=== PATIENT | female | born 1985 | race Caucasian/White ===

== ENCOUNTER 2020-09-08 09:04 | Emergency (ER) | payer OTHER, SELFPAY ==
[2020-09-08 09:06] VITALS: BP 154/98; PULSE 134; RESP 22; TEMP 36.7; O2SAT 94; BMI 37.8
--- NOTE | 2020-09-08 09:19 | EKG12_ITS ---
Test Reason : FEVER Blood Pressure : / mmHG Vent. Rate : 129 BPM Atrial Rate : 129 BPM P-R Int : 134 ms QRS Dur : 134 ms QT Int : 330 ms P-R-T Axes : 058 -47 069 degrees QTc Int : 483 ms Sinus tachycardia Possible Left atrial enlargement Left axis deviation Left bundle branch block Abnormal ECG Confirmed by TONY FLOR, RASHEL ([id number]), editorial clerk JOCELYNN ENGLAND ([id number]) on 09/12/2020 2:23:57 PM Referred By: Confirmed By:RASHEL JIMENEZ MD
[2020-09-08 09:20] VITALS: BP 154/98; PULSE 134; RESP 22; TEMP 36.7; O2SAT 94
--- NOTE | 2020-09-08 09:20 | ED.DCSUM_ITS ---
History of Present Illness Chief Complaint: Fever Informant: Patient Narrative: 34-year-old female presents for the evaluation of fever vomiting and diarrhea. Patient tells me that she began to feel ill on . She developed a slight headache body aches and nausea. Over the weekend the symptoms continued and she experienced vomiting and diarrhea. She notes fever up to 102. She notes a cough with deep inspiration. She denies any rashes, nasal congestion, sore throat, earache. She states that her left leg felt achy this morning when she put her socks on. 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 She denies any leg swelling. She denies any shortness of breath at rest but when she gets up and moves she states she feels weak. She was concerned about dehydration and called her doctor and they referred her to emergency. She notes one of her children has had a productive cough but nobody else. Patient also notes that she can smell things but cannot taste things very well. Past Medical History - Allergies and Home Meds Allergies/Adverse Reactions: Allergies No Known Allergies Allergy (Verified 09/08/20 09:05) Primary Care Physician: Scar Mo DO [Primary Care Provider] - 3-5 Days if not improving Past Medical History: None Surgical History: - - x4, BTL Lives: With Family Smoking Status: Never smoker Alcohol: None Drugs: None Review of Systems General: Reports: Chills, Fever, Malaise, Sweats Eyes: Denies: Visual changes - bilaterally, Diplopia ENT: Denies: Rhinorrhea, Sore throat Cardiovascular: Denies: Chest pain, Palpitations Respiratory: Reports: Cough, Dyspnea on exertion Gastrointestinal: Reports: Nausea, Vomiting, Diarrhea. Denies: Abdominal pain, Melena, Hematochezia Genitourinary: Denies: Dysuria, Hematuria, Frequency Musculoskeletal: Reports: Myalgias, Arthralgias. Denies: Back pain, Extremity Pain Skin: Denies: Rash, Wounds Neurological: Reports: Headache. Denies: Weakness, Numbness Physical Exam Vital Signs/Narrative: Vital Signs Temp Pulse Resp BP Pulse Ox 09/08/20 09:06 98.1 F 134 H 22 H 154/98 H 94 Inital Vital Signs reviewed: Yes General: Well nourished, Well developed, Obese, No Acute Distress Head: Normocephalic, Atraumatic Eyes: Perrl, EOMI ENT: Moist mucous membranes, No rhinorrhea Neck: Supple, Nontender Cardiovascular: Regular rate, No murmurs, Tachycardia Respiratory: No distress, CTA bilaterally, Chest nontender Abdomen: Soft, Nontender, Nondistended, Normal bowel sounds Back: Nontender, Normal Inspection Extremities: Nontender, No edema Skin: Normal color, No rash Neurological: Alert, Oriented x3, Cranial nerves II-XII grossly intact, Normal Strength, Normal Sensation Psychological: Normal affect, Normal Mood Diagnostic/Tx/Re-eval Clinical Impression(s) from Imaging Studies Chest X-Ray 09/08/20 09:40 IMPRESSION: Opacification right cardiophrenic angle suggests infiltrate or atelectasis. Platelike atelectasis in the left midlung field Follow-up recommended to assure resolution Electronically Signed: Charli Correa MD at 10:06 EDT , Service support , Chest CTA 09/08/20 11:19 IMPRESSION: No demonstrated PE, or thoracic aortic aneurysm or dissection Diffuse airspace and groundglass opacifications, and in the periphery of both lung brothers with bibasilar atelectasis and small pleural effusions. Differential as described above, Covid pneumonia suspected Electronically Signed: Chrali Correa MD at 12:10 EDT , Service support , Laboratory Last Values WBC 4.4 K/mm3 (4.4-11.0) 09/08/20 09:37 RBC 5.26 M/mm3 (4.2-5.4) 09/08/20 09:37 Hgb 14.2 g/dL (12.0-15.0) 09/08/20 09:37 Hct 44.5 % (37-47) 09/08/20 09:37 MCV 84.6 fL (81-99) 09/08/20 09:37 MCH 27.0 pg (27.0-32.0) 09/08/20 09:37 MCHC 31.9 g/dL (32-36) L 09/08/20 09:37 RDW Std Deviation 40.5 fl (35.1-43.9) 09/08/20 09:37 RDW Coeff of Cathy 12.9 % (11.6-14.6) 09/08/20 09:37 Plt Count 134 K/mm3 (150-450) L 09/08/20 09:37 MPV 11.5 fl (6.2-12.0) 09/08/20 09:37 Immature Gran % (Auto) 0.500 % (0.0-0.9) 09/08/20 09:37 Neut % (Auto) 75.3 % (47-70) H 09/08/20 09:37 Lymph % (Auto) 20.4 % (19-41) 09/08/20 09:37 [place] % (Auto) 3.6 % (0-10) 09/08/20 09:37 Eos % (Auto) 0.0 % (0-5) 09/08/20 09:37 Baso % (Auto) 0.2 % (0-1) 09/08/20 09:37 Absolute Neuts (auto) 3.3 X10^3/uL (2.0-7.7) 09/08/20 09:37 Absolute Lymphs (auto) 0.90 X10^3/uL (0.83-4.51) 09/08/20 09:37 Nucleated RBC % 0 % (0-5) 09/08/20 09:37 PT 14.1 SECONDS (11.7-14.9) 09/08/20 09:37 INR 1.2 09/08/20 09:37 APTT 31.0 Seconds (24.1-36.2) 09/08/20 09:37 Sodium 137 mmol/L (136-145) 09/08/20 09:37 Potassium 3.5 mmol/L (3.5-5.1) 09/08/20 09:37 Chloride 102 mmol/L (98-107) 09/08/20 09:37 Carbon Dioxide 27.0 mmol/L (21.0-32.0) 09/08/20 09:37 Anion Gap 8 (5-15) 09/08/20 09:37 BUN 17 mg/dL (7-18) 09/08/20 09:37 Creatinine 0.87 mg/dL (0.55-1.02) 09/08/20 09:37 Estim Creat Clear Calc 72.06 ml/min 09/08/20 09:37 Est GFR (MDRD) Af Amer 96 mL/min (>60) 09/08/20 09:37 Est GFR (MDRD) Non-Af 79 mL/min (>60) 09/08/20 09:37 BUN/Creatinine Ratio 19.6 RATIO (10-20) 09/08/20 09:37 Glucose 104 mg/dL (74-106) 09/08/20 09:37 Lactic Acid 1.4 mmol/L (0.4-1.9) 09/08/20 09:37 Calcium 8.3 mg/dL (8.5-10.1) L 09/08/20 09:37 Total Bilirubin 0.40 mg/dL (0.20-1.00) 09/08/20 09:37 AST 31 U/L (15-37) 09/08/20 09:37 ALT 29 U/L (13-56) 09/08/20 09:37 Alkaline Phosphatase 60 U/L (45-117) 09/08/20 09:37 Troponin I < 0.015 ng/mL (<0.045) 09/08/20 09:37 Total Protein 7.6 g/dL (6.4-8.2) 09/08/20 09:37 Albumin 3.3 g/dL (3.2-5.0) 09/08/20 09:37 Globulin 4.3 g/dL (2.2-4.2) H 09/08/20 09:37 Albumin/Globulin Ratio 0.8 RATIO (0.9-2.4) L 09/08/20 09:37 - EKG Initial EKG Interpretation: Sinus Tachycardia - EKG demonstrates a sinus tachycardia at a rate of 129 with left bundle branch block. - Medical Decision Making It was established and patient received IV fluids and Zofran. My interpretation of the portable chest x-ray is atelectatic changes in the left lung field. Radiology questions atelectasis versus infiltrate on the right as well as left. CT of the chest demonstrates multiple focal areas of infiltrate throughout both lung brothers. Patient's white count is low normal. Lactic acid normal. No evidence of endorgan dysfunction and electrolytes are within normal limits.. Heart rate has improved with IV fluids. Clinically the patient has COVID-19 symptoms. I will write for Zofran and suggest Imodium as needed for the diarrhea. Also write for Decadron and albuterol MDI. I been assigned a Covid PCR test. Patient understands that she may worsen in the next several days and require hospitalization or oxygen supplementation. She was advised that she needs to contact her children's school and her 's work to find out their protocols for returning with a known household infection. Return if worsening or concerns After the patient was home I checked her Covid PCR and it is positive. I will attempt to call the patient. ED Disposition - Plan for ED Patient: Disposition: Home or Assisted Living Diagnosis: Viral syndrome, Vomiting and diarrhea, COVID-19 Instructions: Coronavirus Disease 2019 (COVID-19): Overview, ED G astroenteritis, Viral (Adult), ED Viral Syndrome (Adult) Prescriptions: Dexamethasone [Decadron] 6 mg PO DAILY 5 Days #5 tablet Transmission Status: Received by [id number] Albuterol Inhaler [Ventolin Hfa] 2 puff INHALATION Q4H PRN PRN #1 inhaler PRN Reason: Wheezing Transmission Status: Received by [facility] Ondansetron [Zofran Odt] 4 mg PO Q6H PRN PRN #20 tablet PRN Reason: Nausea Prescription Printed Referrals: Scar Mo DO [Primary Care Provider] - 3-5 Days if not improving Additional Instructions: Imodium as needed for diarrhea Tylenol or Motrin for fever and myalgias.
--- NOTE | 2020-09-08 09:40 | RAD_ITS ---
STUDY: X-RAY CHEST REASON FOR EXAM: Female, 34 years old. Fever and cough TECHNIQUE: 2 AP portable views COMPARISON: None. FINDINGS: EKG leads overlie the chest The lungs are expanded, there is interstitial opacification in the right cardiophrenic angle and platelike atelectasis in the left midlung field. There is no demonstrated pleural abnormality. Normal size heart. Normal mediastinum and manny. Normal visualized pulmonary arteries. Normal visualized aortic arch and descending thoracic aorta. Normal visualized thoracic spine. Normal visualized ribs, clavicles, and shoulders. There is no demonstrated abnormality of the visualized soft tissue structures of the upper abdomen. RAD/Chest 1 View (Portable) IMPRESSION: Opacification right cardiophrenic angle suggests infiltrate or atelectasis. Platelike atelectasis in the left midlung field Follow-up recommended to assure resolution Electronically Signed: Charli Correa MD at 10:06 EDT , Service support ,
[2020-09-08 09:46] VITALS: TEMP 36.8
[2020-09-08] MEDS: 0.9% Normal Saline 1,000 ML 999 ML IV ×2 (09:47→10:59)
[2020-09-08 09:50] LABS: Absolute Neutrophil Count 3.3 X10^3/uL (2.0-7.7); Basophil# 0.01 X10^3/uL; Basophil% 0.2 % (0-1); Hematocrit 44.5 % (37-47); Hemoglobin 14.2 g/dL (12.0-15.0); Lymphocyte % 20.4 % (19-41); Mean Corp Hgb Conc 31.9 g/dL (32-36); Mean Corpuscular Volume 84.6 fL (81-99); Mean Platelet Vol. 11.5 fl (6.2-12.0); Monocyte# 0.16 X10^3/uL; Monocyte% 3.6 % (0-10); NRBC Flagged by Analyzer 0 % (0-5); Neutrophil # 3.33 X10^3/uL (2.7-7.7); Neutrophil % 75.3 % (47-70); Platelet Count 134 K/mm3 (150-450); RBC Distribution Width CV 12.9 % (11.6-14.6); RBC Distribution Width SD 40.5 fl (35.1-43.9); Red Blood Count 5.26 M/mm3 (4.2-5.4); White Blood Count 4.4 K/mm3 (4.4-11.0)
[2020-09-08 09:59] LABS: International Normalized Ratio 1.2; Prothrombin Time (Protime)PT. 14.1 SECONDS (11.7-14.9)
[2020-09-08 10:09] LABS: Lactic Acid 1.4 mmol/L (0.4-1.9)
[2020-09-08 10:33] LABS: ALB/GLOB Ratio 0.8 RATIO (0.9-2.4); AST(SGOT) 31 U/L (15-37); Alanine Aminotransfer ALT/SGPT 29 U/L (13-56); Albumin, Serum 3.3 g/dL (3.2-5.0); Alkaline Phosphatase 60 U/L (45-117); Anion Gap 8 (5-15); BUN 17 mg/dL (7-18); BUN/Creat Ratio 19.6 RATIO (10-20); Calcium,Total 8.3 mg/dL (8.5-10.1); Chloride 102 mmol/L (98-107); Creatinine, Serum 0.87 mg/dL (0.55-1.02); EST Glomerular Filtration Rate 79 mL/min (>60); Est Glom Filt Rate - Afr Amer 96 mL/min (>60); Estimated Creatinine Clearance 72.06 ml/min; Globulin 4.3 g/dL (2.2-4.2); Glucose 104 mg/dL (74-106); Potassium 3.5 mmol/L (3.5-5.1); Protein, Total 7.6 g/dL (6.4-8.2); Sodium Level 137 mmol/L (136-145)
[2020-09-08 11:18] LABS: D-Dimer Quantitative (DVT/PE) 1.01 FEU/ug/m (0.27-0.49)
--- NOTE | 2020-09-08 11:19 | VDLE_ITS ---
Reason For Study: Elevated D-dimer Procedure LEFT This is a venous duplex using B-mode, color GSV is normal. flow and spectral Doppler. CFV is partially compressible with bright Exam performed portable in ED. intraluminal echoes consistent with Chronic A preliminary report was called and/or faxed DVT. Normal venous flow noted. to Liliana. FV is compressible, spontaneous, phasic, competent and demonstrates normal augmentation. POP V is compressible, spontaneous, phasic, competent and demonstrates normal augmentation. T/P Trunk is compressible. PTV is compressible. LT PerV is compressible. VL/Venous Duplex US, Unilateral Interpretation Summary Chronic venous changes are noted in the left common femoral vein, which is part ially compressible and demonstrates bright intraluminal echogenicity. The remainder of the left lo wer extremity deep venous system is patent and compressible. Valvular competence appears intact wi thin the proximal deep venous system on the left . The left great saphenous vein appears patent a nd compressible segmentally. Ordering Physician: Segun Ford Referring Physician: Scar Mo Performed By: Yumiko Browne RVT
--- NOTE | 2020-09-08 11:19 | CT_ITS ---
STUDY: CTA CHEST REASON FOR EXAM: Female, 34 years old. Acute shortness of breath, elevated d-dimer RADIATION DOSAGE (If Supplied By Facility): CTDIvol = ( 10.50 ) mGy, DLP = ( 361.00 ) mGycm TECHNIQUE: The examination was performed with the intravenous administration of IV 100mL Isovue-370. Post-processing of the angiographic images was performed, with multiplanar reformation and 3D reconstruction. Individualized dose optimization techniques were used for this CT. COMPARISON: Chest x-ray from earlier today FINDINGS: Normal enhancement of the main pulmonary artery and right and left pulmonary arteries. Normal enhancement of the bilateral peripheral pulmonary arteries. There is no demonstrated pulmonary embolism. Normal thoracic aorta and visualized great vessels. There is no demonstrated aortic dissection. Normal heart and pericardium. Normal mediastinum. Normal hilar regions. There is peribronchial thickening. The lungs are well expanded. Diffuse patchy groundglass and airspace opacifications throughout both lung brothers with bibasilar atelectasis and small pleural effusions. This pattern of opacification is suggestive of Covid pneumonia, but could also be seen with multifocal pneumonitis or drug interaction/toxicity. Normal pleura. Normal chest wall structures. Normal osseous structures. Normal visualized upper abdomen. CT/CTA Chest W/WO Contrast IMPRESSION: No demonstrated PE, or thoracic aortic aneurysm or dissection Diffuse airspace and groundglass opacifications, and in the periphery of both lung brothers with bibasilar atelectasis and small pleural effusions. Differential as described above, Covid pneumonia suspected Electronically Signed: Charli Correa MD at 12:10 EDT , Service support ,
[2020-09-08 11:21] VITALS: BP 118/75; PULSE 71; RESP 15; TEMP 36.9; O2SAT 98
[2020-09-08 11:34] LABS: Color, Urine Yellow (Yellow); Glucose, Dipstick Normal (Normal); Leukocyte Esterase-Dipstick 500 /ul (Negative); Nitrite-Dipstick Negative (Negative); Occult Blood-Urine 10 /ul (Negative); Protein-Dipstick 30 mg/dl (Negative); Urine Bilirubin Dipstick Negative (Negative); Urine Clarity Sl. Cloudy (Clear); Urine Urobilinogen Normal (Normal)
[2020-09-08 11:42] LABS: Ketone-Dipstick 150 mg/dl (Negative)
[2020-09-08 11:43] LABS: Bacteria 2+ /hpf (None Seen); Mucous, Urine 1+ /hpf (<or=2+); Red Blood Cells-Urine 0-5 SEEN /hpf (0-5); Squamous Epithelial Cells - UA 0-5 SEEN /hpf (5-10); White Blood Cells 5-10 SEEN /hpf (0-5)
[2020-09-08 12:58] VITALS: BP 139/74; PULSE 74; RESP 15; TEMP 36.8; O2SAT 98
== END 2020-09-08 13:00 | disposition home or self-care (01) ==
PROVIDERS: Emergency Provider Emergency Medicine; PCP Family Medicine
DX: U07.1 COVID-19 (principal); B34.9 Viral infection, unspecified; R11.2 Nausea with vomiting, unspecified; R19.7 Diarrhea, unspecified; I44.7 Left bundle-branch block, unspecified; E66.9 Obesity, unspecified; Z86.718 Personal history of other venous thrombosis and embolism
CPT/HCPCS: 71045; 71275; 80053; 81001; 83605; 84484; 85025; 85379; 85610; 85730; 87040; 87086; 87088; 87426; 87635; 87804; 93005; 93971; 96360; 96361; 99284; J7030; Q9967; U0002

== ENCOUNTER 2020-09-14 23:26 | Inpatient (IN) | payer OTHER, SELFPAY ==
[2020-09-14 23:28] VITALS: BP 106/64; PULSE 116; RESP 28; TEMP 36.6; O2SAT 92; BMI 36.5
--- NOTE | 2020-09-14 23:50 | EKG12_ITS ---
Test Reason : SOB Blood Pressure : / mmHG Vent. Rate : 113 BPM Atrial Rate : 113 BPM P-R Int : 144 ms QRS Dur : 138 ms QT Int : 368 ms P-R-T Axes : 050 -41 073 degrees QTc Int : 504 ms Sinus tachycardia Left axis deviation Left bundle branch block Abnormal ECG Confirmed by CLAUDIA FLOR, CHINO ([id number]), quality audit representative JOCELYNN ENGLAND ([id number]) on 09/15/2020 2:24:57 PM Referred By: ENID Confirmed By:CHINO TAYLOR MD
--- NOTE | 2020-09-14 23:52 | ED.VIS.GEN ---
History of Present Illness Chief Complaint: Shortness of Breath Informant: Patient, Family, Database Security Administrator Narrative: 34-year-old female was diagnosed with Covid 1 week ago. She was placed on steroids. She is continued to have diarrhea and not eat very well. She notes dyspnea with exertion. EMS was called tonight. They noted her to be hypoxic at about 85% on room air. Nursing here notes that she is 85% on room air also and significantly labored breathing with exertion. On 6 L she is satting approximately 92%. Past Medical History - Allergies and Home Meds Allergies/Adverse Reactions: Allergies No Known Allergies Allergy (Verified 09/14/20 23:36) Primary Care Physician: Scar Mo DO [Primary Care Provider] - Past Medical History: - - COVID-19 Surgical History: noncontributory, - - x4, BTL Lives: With Family Smoking Status: Never smoker Alcohol: None Drugs: None Review of Systems General: Reports: Chills, Fever, Malaise. Denies: Sweats Eyes: Denies: Visual changes - bilaterally, Diplopia ENT: Denies: Rhinorrhea, Sore throat Cardiovascular: Denies: Chest pain, Palpitations Respiratory: Reports: Dyspnea, Cough, Dyspnea on exertion Gastrointestinal: Reports: Nausea, Diarrhea. Denies: Abdominal pain, Vomiting, Melena, Hematochezia Genitourinary: Denies: Dysuria, Hematuria, Frequency Musculoskeletal: Reports: Myalgias, Arthralgias. Denies: Back pain, Extremity Pain Skin: Denies: Rash, Wounds Neurological: Reports: Headache. Denies: Weakness, Numbness Physical Exam Vital Signs/Narrative: Vital Signs Temp Pulse Resp BP Pulse Ox 09/14/20 23:28 97.9 F 116 H 28 H 106/64 92 Inital Vital Signs reviewed: Yes General: Well nourished, Well developed, No Acute Distress Head: Normocephalic, Atraumatic Eyes: Perrl, EOMI ENT: Moist mucous membranes, No rhinorrhea Neck: Supple, Nontender Cardiovascular: Regular rate, No murmurs, Tachycardia Respiratory: No distress, CTA bilaterally, Chest nontender Abdomen: Soft, Nontender, Nondistended, Normal bowel sounds Back: Nontender, Normal Inspection Extremities: Nontender, No edema Skin: Normal color, No rash Neurological: Alert, Oriented x3, Cranial nerves II-XII grossly intact, Normal Strength, Normal Sensation Psychological: Normal affect, Normal Mood Diagnostic/Tx/Re-eval Clinical Impression(s) from Imaging Studies Chest CTA 09/15/20 23:51 IMPRESSION: No demonstrated pulmonary embolism or arterial dissection. Interval increase in diffusely scattered groundglass airspace opacities concerning for underlying infectious inflammatory process and Covid pneumonia. Electronically Signed: Tomer Triplett MD at 1:21 EDT Tel , Service support , Laboratory Last Values WBC 9.0 K/mm3 (4.4-11.0) 09/14/20 23:47 RBC 5.48 M/mm3 (4.2-5.4) H 09/14/20 23:47 Hgb 14.7 g/dL (12.0-15.0) 09/14/20 23:47 Hct 46.4 % (37-47) 09/14/20 23:47 MCV 84.7 fL (81-99) 09/14/20 23:47 MCH 26.8 pg (27.0-32.0) L 09/14/20 23:47 MCHC 31.7 g/dL (32-36) L 09/14/20 23:47 RDW Std Deviation 39.6 fl (35.1-43.9) 09/14/20 23:47 RDW Coeff of Cathy 12.7 % (11.6-14.6) 09/14/20 23:47 Plt Count 170 K/mm3 (150-450) 09/14/20 23:47 MPV 10.7 fl (6.2-12.0) 09/14/20 23:47 Immature Gran % (Auto) 1.600 % (0.0-0.9) H 09/14/20 23:47 Neut % (Auto) 80.8 % (47-70) H 09/14/20 23:47 Lymph % (Auto) 10.3 % (19-41) L 09/14/20 23:47 Jack % (Auto) 6.3 % (0-10) 09/14/20 23:47 Eos % (Auto) 0.8 % (0-5) 09/14/20 23:47 Baso % (Auto) 0.2 % (0-1) 09/14/20 23:47 Absolute Neuts (auto) 7.3 X10^3/uL (2.0-7.7) 09/14/20 23:47 Absolute Lymphs (auto) 0.92 X10^3/uL (0.83-4.51) 09/14/20 23:47 Nucleated RBC % 0 % (0-5) 09/14/20 23:47 Fibrinogen 421 mg/dl (203-444) 09/14/20 23:47 D-Dimer Quant (PE/DVT) > 20.00 FEU/ug/m (0.27-0.49) H* 09/14/20 23:47 Sodium 139 mmol/L (136-145) 09/14/20 23:47 Potassium 3.2 mmol/L (3.5-5.1) L 09/14/20 23:47 Chloride 104 mmol/L (98-107) 09/14/20 23:47 Carbon Dioxide 30.0 mmol/L (21.0-32.0) 09/14/20 23:47 Anion Gap 5 (5-15) 09/14/20 23:47 BUN 25 mg/dL (7-18) H 09/14/20 23:47 Creatinine 0.86 mg/dL (0.55-1.02) 09/14/20 23:47 Estim Creat Clear Calc 72.90 ml/min 09/14/20 23:47 Est GFR (MDRD) Af Amer 97 mL/min (>60) 09/14/20 23:47 Est GFR (MDRD) Non-Af 80 mL/min (>60) 09/14/20 23:47 BUN/Creatinine Ratio 29.1 RATIO (10-20) H 09/14/20 23:47 Glucose 124 mg/dL (74-106) H 09/14/20 23:47 Lactic Acid 1.7 mmol/L (0.4-1.9) 09/14/20 23:47 Calcium 8.6 mg/dL (8.5-10.1) 09/14/20 23:47 Total Bilirubin 0.60 mg/dL (0.20-1.00) 09/14/20 23:47 AST 40 U/L (15-37) H 09/14/20 23:47 ALT 87 U/L (13-56) H 09/14/20 23:47 Alkaline Phosphatase 56 U/L (45-117) 09/14/20 23:47 Lactate Dehydrogenase 335 U/L (84-246) H 09/14/20 23:47 Total Creatine Kinase 36 U/L (26-192) 09/14/20 23:47 Troponin I < 0.015 ng/mL (<0.045) 09/14/20 23:47 C-React Prot Ext Range 19.70 mg/L (0.0-3.0) H 09/14/20 23:47 Total Protein 7.2 g/dL (6.4-8.2) 09/14/20 23:47 Albumin 2.8 g/dL (3.2-5.0) L 09/14/20 23:47 Globulin 4.4 g/dL (2.2-4.2) H 09/14/20 23:47 Albumin/Globulin Ratio 0.6 RATIO (0.9-2.4) L 09/14/20 23:47 Procalcitonin 0.06 ng/mL (0.00-0.09) 09/14/20 23:47 Serum , Qual NEGATIVE Negative 09/14/20 23:47 - EKG Initial EKG Interpretation: Sinus Tachycardia - EKG demonstrates a sinus tachycardia at a rate of 113. No concerning features of ACS. Noted left bundle branch block. - Medical Decision Making CTA was obtained given her degree of tachycardia and hypoxemia and hypercoagulable state. No pulmonary embolism was noted. Basic labs were obtained. Plan will be admission to the hospital. ED Disposition - Plan for ED Patient: Disposition: Acute Care Hospital [facility] Diagnosis: COVID-19, Hypoxia Referrals: Scar Mo DO [Primary Care Provider] -
[2020-09-15] VITALS (19 sets, daily range): BP systolic 107–121; BP diastolic 56–84; PULSE 87–118; RESP 18–28; TEMP 36.6–37.1; O2SAT 88–98; BMI 34.9
[2020-09-15] LABS: Absolute Lymphocyte Count 0.92 X10^3/uL (0.83-4.51); Absolute Neutrophil Count 7.3 X10^3/uL (2.0-7.7); Basophil# 0.02 X10^3/uL; Basophil% 0.2 % (0-1); Eosinophil# 0.07 X10^3/uL; Eosinophils% 0.8 % (0-5); Hematocrit 46.4 % (37-47); Hemoglobin 14.7 g/dL (12.0-15.0); Lymphocyte # 0.92 X10^3/ul (4.0); Lymphocyte % 10.3 % (19-41); Mean Corp Hgb Conc 31.7 g/dL (32-36); Mean Corpuscular Hgb 26.8 pg (27.0-32.0); Mean Corpuscular Volume 84.7 fL (81-99); Mean Platelet Vol. 10.7 fl (6.2-12.0); Monocyte# 0.56 X10^3/uL; Monocyte% 6.3 % (0-10); NRBC Flagged by Analyzer 0 % (0-5); Neutrophil # 7.25 X10^3/uL (2.7-7.7); Neutrophil % 80.8 % (47-70); Platelet Count 170 K/mm3 (150-450); RBC Distribution Width CV 12.7 % (11.6-14.6); RBC Distribution Width SD 39.6 fl (35.1-43.9); Red Blood Count 5.48 M/mm3 (4.2-5.4)
[2020-09-15 00:08] LABS: Internal QC Validated? YES +Cl - CLEAR BKGD; Pregnancy, Serum, hCG Quali. NEGATIVE Negative
[2020-09-15 00:17] LABS: ALB/GLOB Ratio 0.6 RATIO (0.9-2.4); AST(SGOT) 40 U/L (15-37); Alanine Aminotransfer ALT/SGPT 87 U/L (13-56); Albumin, Serum 2.8 g/dL (3.2-5.0); Alkaline Phosphatase 56 U/L (45-117); Anion Gap 5 (5-15); BUN 25 mg/dL (7-18); BUN/Creat Ratio 29.1 RATIO (10-20); CPK Total, Creatine Kinase 36 U/L (26-192); Calcium,Total 8.6 mg/dL (8.5-10.1); Chloride 104 mmol/L (98-107); Creatinine, Serum 0.86 mg/dL (0.55-1.02); EST Glomerular Filtration Rate 80 mL/min (>60); Est Glom Filt Rate - Afr Amer 97 mL/min (>60); Globulin 4.4 g/dL (2.2-4.2); Glucose 124 mg/dL (74-106); LDH 335 U/L (84-246); Potassium 3.2 mmol/L (3.5-5.1); Protein, Total 7.2 g/dL (6.4-8.2); Sodium Level 139 mmol/L (136-145)
[2020-09-15] MEDS: 0.9% Normal Saline 1,000 ML 999 ML IV (00:21)
[2020-09-15 00:24] LABS: D-Dimer Quantitative (DVT/PE) > 20.00 FEU/ug/m (0.27-0.49)
[2020-09-15 00:27] LABS: Lactic Acid 1.7 mmol/L (0.4-1.9)
[2020-09-15 00:44] LABS: Fibrinogen 421 mg/dl (203-444)
[2020-09-15 01:05] LABS: Procalcitonin 0.06 ng/mL (0.00-0.09)
--- NOTE | 2020-09-15 02:04 | PCM.HP.STD ---
History of Present Illness Date of Admission: 09/15/20 Chief Complaint: Shortness of breath The patient is a 34 year old F with PMH as below who presents back to the hospital with shortness of breath. She had since been seen about 5 or 6 days ago and was diagnosed with Covid and symptom onset was 5 to 6 days prior to that initial evaluation. At the time she was not hypoxic and she was discharged on Decadron. She has had increasing dyspnea with exertion and the ambulance was called and she was found to be hypoxic to about 85% on room air. She was brought in on ambulance and had a CTA of her chest done because a D-dimer was greater than 20 and was negative for PE. She was maintaining her oxygen sats on 6 L at 92%. No leukocytosis and her creatinine is stable in the ER. Past Medical History Allergies No Known Allergies Allergy (Verified 09/14/20 23:36) Home Medications: Ambulatory Orders Medication Instructions Recorded Albuterol Inhaler [Ventolin Hfa] 2 puff INHALATION Q4H PRN PRN #1 09/08/20 inhaler Surgical History: - - x4, BTL Lives: With Family Smoking Status: Never smoker Alcohol: None Drugs: None - *Family History Maternal History Items: No pertinent history Paternal History Items: Stroke Review of Systems Constitutional: Reports: Chills, Fever. Denies: Weight Change HEENT: Denies: Head Aches, Sinus Congestion, Sinus Drainage Cardiovascular: Denies: Chest Pain, Palpitations Respiratory: Reports: Cough, Shortness of Breath, Shortness of breath upon exertion. Denies: Shortness of breath at rest, Sputum production Gastrointestinal: Reports: Diarrhea, Nausea. Denies: Abdominal Pain, Vomiting Genitourinary: Denies: Dysuria Musculoskeletal: Denies: Joint Pain, Joint Tenderness Skin: Denies: Rash, Wounds Neurological: Denies: Numbness, Tingling, Focal weakness Psychiatric: Denies: Anxiety, Depression Hematologic/ Lymphatic: Denies: Easy Bruising, Easy Bleeding VTE Information - Inpt Only VTE Present on Admission: No Patient Problems: Active and Suspected Problems COVID-19 (Acute) Hypoxia (Acute) - Physical Exam Vitals/I&O's: Vital Signs Temp Pulse Resp BP Pulse Ox 98.0 F 109 H 21 H 121/84 H 97 09/15/20 01:51 09/15/20 01:51 09/15/20 01:51 09/15/20 01:51 09/15/20 01:51 Oxygen Flow Rate (L/min) 3 Oxygen Delivery Method Nasal Cannula Weight: 199 lb 8.293 oz Body Mass Index (BMI) 36.5 General: Alert, Oriented x3, Cooperative, No apparent distress HEENT: Atraumatic, PERRLA, EOMI, Normocephalic Oral: Moist Mucosa Neck: Supple, No JVD Lungs: Clear to auscultation, Normal air movement, No rhonchi, No wheeze, No rales Cardiovascular: Regular Rhythm, Normal S1, Normal S2, No murmurs, Tachycardic Abdomen: Soft, Non Tender, Non-Distended, No Hepato-splenomegaly Extremities: No edema, Capillary Refill Less than 3 Seconds Skin: No rashes, No breakdown Neurological: Neuro grossly intact, Sensory exam intact to light touch and pain Psych/Mental Status: Normal Affect, Appropriate Laboratory Results 09/14/20 23:47: WBC 9.0, RBC 5.48 H, Hgb 14.7, Hct 46.4, MCV 84.7, MCH 26.8 L, MCHC 31.7 L, RDW Std Deviation 39.6, RDW Coeff of Cathy 12.7, Plt Count 170, MPV 10.7, Immature Gran % (Auto) 1.600 H, Neut % (Auto) 80.8 H, Lymph % (Auto) 10.3 L, [place] % (Auto) 6.3, Eos % (Auto) 0.8, Baso % (Auto) 0.2, Absolute Neuts (auto) 7.3, Absolute Lymphs (auto) 0.92, Nucleated RBC % 0 09/14/20 23:47: Fibrinogen 421, D-Dimer Quant (PE/DVT) > 20.00 H* 09/14/20 23:47: Sodium 139, Potassium 3.2 L, Chloride 104, Carbon Dioxide 30.0, Anion Gap 5, BUN 25 H, Creatinine 0.86, Estim Creat Clear Calc 72.90, Est GFR (MDRD) Af Amer 97, Est GFR (MDRD) Non-Af 80, BUN/Creatinine Ratio 29.1 H, Glucose 124 H, Calcium 8.6, Total Bilirubin 0.60, AST 40 H, ALT 87 H, Alkaline Phosphatase 56, Lactate Dehydrogenase 335 H, Total Creatine Kinase 36, Troponin I < 0.015, C-React Prot Ext Range 19.70 H, Total Protein 7.2, Albumin 2.8 L, Globulin 4.4 H, Albumin/Globulin Ratio 0.6 L 09/14/20 23:47: Lactic Acid 1.7 09/14/20 23:47: Procalcitonin 0.06 09/14/20 23:47: Serum , Qual NEGATIVE Current Medications Acetaminophen (Acetaminophen 325 Mg Tablet) 650 mg PO Q6H PRN PRN PRN Reason: Pain Score 1-10/Temp > 100.7 F Dexamethasone (Dexamethasone 4 Mg Tablet) 6 mg PO DAILY@0800 HERNANDEZ Enoxaparin Sodium (Enoxaparin 30 Mg/0.3 Ml Syringe) 30 mg SC BID HERNANDEZ Guaifenesin (Guaifenesin 10 Ml Udc (200mg/10ml)) 20 ml PO Q4H PRN PRN PRN Reason: COUGH Sodium Chloride () 250 mls @ 15 mls/hr IV .[id number] PRN PRN Reason: Saline Flush Sodium Chloride () 250 mls @ 15 mls/hr IV .[id number] PRN PRN Reason: Additional IVPB Infusion Melatonin (Melatonin 3 Mg Tablet) 3 mg PO QHS PRN PRN PRN Reason: INSOMNIA Ondansetron HCl (Ondansetron 4 Mg/2 Ml Vial) 4 mg IV Q8H PRN PRN PRN Reason: NAUSEA/VOMITING Sodium Chloride (0.9% Saline Lock 10 Ml Syringe) 10 - 40 ml IV UD PRN PRN Reason: SALINE FLUSH Assessment/Plan All Active Problems COVID-19 (Acute) Hypoxia (Acute) 1. Acute hypoxic respiratory failure secondary to COVID-19 pneumonia/nausea/diarrhea -She is over 10 days with symptoms therefore will not receive remdesivir -Continue with Decadron for another 5 days to complete steroid course -We will place her on twice daily Lovenox -Continue with oxygen therapy as well as incentive spirometry -GI issues are related to her Covid diagnosis, will continue to monitor DVT: Lovenox Inpatient E&M: [id number] Init Hosp L2
[2020-09-15] MEDS: Potassium Chloride Oral Tablet 20 MEQ 60 MEQ PO (02:30)
[2020-09-15 05:05] LABS: Absolute Lymphocyte Count 0.96 X10^3/uL (0.83-4.51); Absolute Neutrophil Count 6.8 X10^3/uL (2.0-7.7); Basophil# 0.01 X10^3/uL; Basophil% 0.1 % (0-1); Eosinophil# 0.09 X10^3/uL; Eosinophils% 1.1 % (0-5); Hemoglobin 14.2 g/dL (12.0-15.0); Lymphocyte # 0.96 X10^3/ul (4.0); Lymphocyte % 11.3 % (19-41); Mean Corp Hgb Conc 30.9 g/dL (32-36); Mean Corpuscular Hgb 26.5 pg (27.0-32.0); Mean Platelet Vol. 10.5 fl (6.2-12.0); Monocyte# 0.52 X10^3/uL; Monocyte% 6.1 % (0-10); NRBC Flagged by Analyzer 0 % (0-5); Neutrophil # 6.78 X10^3/uL (2.7-7.7); Neutrophil % 79.9 % (47-70); Platelet Count 192 K/mm3 (150-450); RBC Distribution Width CV 13.1 % (11.6-14.6); RBC Distribution Width SD 40.7 fl (35.1-43.9); Red Blood Count 5.35 M/mm3 (4.2-5.4); White Blood Count 8.5 K/mm3 (4.4-11.0)
[2020-09-15 05:19] LABS: Anion Gap 4 (5-15); BUN 19 mg/dL (7-18); Calcium,Total 8.3 mg/dL (8.5-10.1); Chloride 106 mmol/L (98-107); Creatinine, Serum 0.82 mg/dL (0.55-1.02); EST Glomerular Filtration Rate 84 mL/min (>60); Est Glom Filt Rate - Afr Amer 102 mL/min (>60); Estimated Creatinine Clearance 76.46 ml/min; Glucose 108 mg/dL (74-106); Potassium 3.5 mmol/L (3.5-5.1); Sodium Level 140 mmol/L (136-145)
[2020-09-15] MEDS: dexAMETHasone 4 MG Tablet 6 MG PO (09:09)
[2020-09-15] MEDS: Enoxaparin 30 MG/0.3 ML Syringe SC ×2 (09:10→22:27)
--- NOTE | 2020-09-15 14:16 | TELEMED_ITS ---
[facility] has confirmed receipt of a request for visit. This document confirms receipt of the order initiating the consult. To find the results of the consultation, please view the patient's reports for the scanned Telemed Consult.
--- NOTE | 2020-09-15 14:23 | PCM.PN.BLA ---
Progress Note Patient was seen and examined. She is currently on 6 L of oxygen. She complains of feeling tired. Denies any fever or chills. Will continue on Decadron, oxygen. Continue to encourage incentive spirometer
--- NOTE | 2020-09-15 14:54 | CASEMGMT ---
CARA MONTERO attempted x2 to call patient in room to complete initial assessment. No answer, case management will attempt to call patient at later time to complete assessment.
[2020-09-15 15:12] LABS: BNP,B-Type NATRIURETIC PEPTIDE 12.5 pg/mL (0-100)
--- NOTE | 2020-09-15 15:40 | PCM.CON.CC ---
Problem List (1) Respiratory failure with hypoxia Status: Acute Qualifiers: Chronicity: acute Qualified Code(s): J96.01 - Acute respiratory failure with hypoxia (2) COVID-19 Status: Acute (3) Hypoxia Status: Acute Reason for Consult Date of Consultation: 09/15/20 Reason for Consultation: Acute hypoxic respiratory failure History of Present Illness: The patient is a 34 year old F, with no reported past medical history, who presented to [facility] on 09/15/2020 secondary to progressive shortness of breath. Patient had been seen 5 to 6 days prior and was diagnosed with Covid 19. Patient was not hypoxic at that time, so was discharged on Decadron therapy. Patient persisted in shortness of breath and had become hypoxic to 85% by EMS. Patient was transferred to the ER for further evaluation. On presentation to the ER, patient required supplemental oxygen to maintain saturations. Patient was also tachycardic at 116 bpm and tachypneic at 28 breaths/min. A CTA of the chest was obtained secondary to an elevated D-dimer showing significant increase in diffuse scattered groundglass opacities. Laboratory data showed a white blood cell count of 9, hemoglobin of 14.7 and bicarbonate of 30. Lactic acid was slightly elevated at 1.7, along with LDH of 335. CRP was elevated at 19.7, but procalcitonin was within normal limits. EKG showed only sinus tachycardia. Patient was admitted to the Covid cohort unit for further evaluation. Through the day, patient's oxygen status has continued to deteriorate. Patient initially was requiring 3 to 4 L to maintain saturations, but is currently requiring 10 L/min, so a pulmonary/critical care consult was obtained. Patient has had significant difficulty with incentive spirometer through the day achieving only 250 cc. Patient does report that she is starting to become tired of breathing. Patient does not report any history of obstructive lung disease previously. Patient denies any smoking. Patient does report that she has had albuterol in the past with subjective improvement. Patient also states that when she was with her 4 children that her breathing was improved. Patient has never been seen by hunting sales leader or had a formal pulmonary function test. Review of systems otherwise negative from a constitutional, HEENT, respiratory, cardiovascular, GI, genitourinary, musculoskeletal, skin, neurologic, psychiatric and hematologic system unless stated above. Past Medical History Allergies No Known Allergies Allergy (Verified 09/14/20 23:36) Home Medications: Ambulatory Orders Medication Instructions Recorded Albuterol Inhaler [Ventolin Hfa] 2 puff INHALATION Q4H PRN PRN #1 09/08/20 inhaler Surgical History: - - x4, BTL Lives: With Family Smoking Status: Never smoker Alcohol: None Drugs: None - *Family History Maternal History Items: No pertinent history Paternal History Items: Stroke Review of Systems Comment: See HPI Patient Problems: Active and Suspected Problems COVID-19 (Acute) Hypoxia (Acute) Objective: All imaging was personally reviewed from this encounter and her previous ER encounter. Patient has had significant worsening in groundglass opacities bilaterally. Patient has never had an echocardiogram or pulmonary function test that is available for review. - Physical Exam Vitals/I&O's: Vital Signs Temp Pulse Resp BP Pulse Ox 36.8 C 118 H 22 H 113/56 L 88 09/15/20 14:37 09/15/20 14:37 09/15/20 14:37 09/15/20 14:37 09/15/20 14:37 Oxygen Flow Rate (L/min) 6 Oxygen Delivery Method Nasal Cannula Weight: 86.636 kg Body Mass Index (BMI) 34.9 Intake and Output for Last 24 Hours 09/13/20 09/14/20 09/15/20 23:59 23:59 23:59 Intake Total 1060 / 1060 Output Total 650 / 650 Balance 410 / 410 General: Alert, Oriented x3, Cooperative, - - Obese. Moderate conversational dyspnea HEENT: Atraumatic, PERRLA, EOMI, Normocephalic, - - Glasses in place Oral: Moist Mucosa, No Gingival or Mucosal Lesions/ Ulcerations, - - Crowded posterior pharynx Neck: Supple, No JVD, No Nodes, Trachea Midline Lungs: No rhonchi, No wheeze, No rales, Diminished, - - Poor effort. Cardiovascular: Normal S1, Normal S2, No murmurs, No rub noted, No Gallop, Tachycardic Abdomen: Bowel Sounds Present, Soft, Non Tender, Non-Distended, Obese Extremities: No clubbing, No cyanosis, No edema, Capillary Refill Less than 3 Seconds Skin: No rashes, No breakdown Musculoskeletal: No Tenderness to Palpation of Joints or Extremities Lymphatic: No Cervical, Supraclavicular, or Inguinal Adenopathy Neurological: Cranial nerves II-XII grossly intact, Neuro grossly intact, Motor Exam 5/5 strength throughout Psych/Mental Status: Anxious, Restless Laboratory Results 09/14/20 23:47: WBC 9.0, RBC 5.48 H, Hgb 14.7, Hct 46.4, MCV 84.7, MCH 26.8 L, MCHC 31.7 L, RDW Std Deviation 39.6, RDW Coeff of Cathy 12.7, Plt Count 170, MPV 10.7, Immature Gran % (Auto) 1.600 H, Neut % (Auto) 80.8 H, Lymph % (Auto) 10.3 L, [place] % (Auto) 6.3, Eos % (Auto) 0.8, Baso % (Auto) 0.2, Absolute Neuts (auto) 7.3, Absolute Lymphs (auto) 0.92, Nucleated RBC % 0 09/14/20 23:47: Fibrinogen 421, D-Dimer Quant (PE/DVT) > 20.00 H* 09/14/20 23:47: Sodium 139, Potassium 3.2 L, Chloride 104, Carbon Dioxide 30.0, Anion Gap 5, BUN 25 H, Creatinine 0.86, Estim Creat Clear Calc 72.90, Est GFR (MDRD) Af Amer 97, Est GFR (MDRD) Non-Af 80, BUN/Creatinine Ratio 29.1 H, Glucose 124 H, Calcium 8.6, Total Bilirubin 0.60, AST 40 H, ALT 87 H, Alkaline Phosphatase 56, Lactate Dehydrogenase 335 H, Total Creatine Kinase 36, Troponin I < 0.015, C-React Prot Ext Range 19.70 H, Total Protein 7.2, Albumin 2.8 L, Globulin 4.4 H, Albumin/Globulin Ratio 0.6 L 09/14/20 23:47: Lactic Acid 1.7 09/14/20 23:47: Procalcitonin 0.06 09/14/20 23:47: Serum , Qual NEGATIVE 09/15/20 04:55: WBC 8.5, RBC 5.35, Hgb 14.2, Hct 46.0, MCV 86.0, MCH 26.5 L, MCHC 30.9 L, RDW Std Deviation 40.7, RDW Coeff of Cathy 13.1, Plt Count 192, MPV 10.5, Immature Gran % (Auto) 1.500 H, Neut % (Auto) 79.9 H, Lymph % (Auto) 11.3 L, [place] % (Auto) 6.1, Eos % (Auto) 1.1, Baso % (Auto) 0.1, Absolute Neuts (auto) 6.8, Absolute Lymphs (auto) 0.96, Nucleated RBC % 0 09/15/20 04:55: Sodium 140, Potassium 3.5, Chloride 106, Carbon Dioxide 30.0, Anion Gap 4 L, BUN 19 H, Creatinine 0.82, Estim Creat Clear Calc 76.46, Est GFR (MDRD) Af Amer 102, Est GFR (MDRD) Non-Af 84, BUN/Creatinine Ratio 23.0 H, Glucose 108 H, Calcium 8.3 L 09/15/20 04:55: B-Natriuretic Peptide 12.5 Current Medications Acetaminophen (Acetaminophen 325 Mg Tablet) 650 mg PO Q6H PRN PRN PRN Reason: Pain Score 1-10/Temp > 100.7 F Albuterol Sulfate (Albuterol Sulfate 8 Gm Inhaler (60 Puffs)) 2 puff INHALATION Q4H PRN PRN PRN Reason: WHEEZING Dexamethasone (Dexamethasone 4 Mg Tablet) 6 mg PO DAILY@0800 [facility] Last Admin: 09/15/20 09:09 Dose: 6 mg Documented by: Enoxaparin Sodium (Enoxaparin 30 Mg/0.3 Ml Syringe) 30 mg SC BID [facility] Last Admin: 09/15/20 09:10 Dose: 30 mg Documented by: Guaifenesin (Guaifenesin 10 Ml Udc (200mg/10ml)) 20 ml PO Q4H PRN PRN PRN Reason: COUGH Sodium Chloride () 250 mls @ 15 mls/hr IV .[id number] PRN PRN Reason: Saline Flush Sodium Chloride () 250 mls @ 15 mls/hr IV .[id number] PRN PRN Reason: Additional IVPB Infusion Melatonin (Melatonin 3 Mg Tablet) 3 mg PO QHS PRN PRN PRN Reason: INSOMNIA Ondansetron HCl (Ondansetron 4 Mg/2 Ml Vial) 4 mg IV Q8H PRN PRN PRN Reason: NAUSEA/VOMITING Sodium Chloride (0.9% Saline Lock 10 Ml Syringe) 10 - 40 ml IV UD PRN PRN Reason: SALINE FLUSH Clinical Impression(s) from Imaging Studies Chest CTA 09/15/20 23:51 IMPRESSION: No demonstrated pulmonary embolism or arterial dissection. Interval increase in diffusely scattered groundglass airspace opacities concerning for underlying infectious inflammatory process and Covid pneumonia. Electronically Signed: Tomer Triplett MD at 1:21 EDT Tel , Service support , Assessment/Plan Active and Suspected Problems COVID-19 (Acute) Hypoxia (Acute) RECOMMENDATIONS: 1. Continue Decadron 2. Schedule albuterol and decrease as needed dosing interval 3. Possible transition to Airvo overnight 4. Cannot exclude the need for BiPAP with sleep 5. No Remdesivir given delayed presentation 6. Wean oxygen as tolerated. Encourage incentive spirometer IMPRESSIONS: 1. Acute hypoxic respiratory failure secondary to COVID-19 pneumonia Unclear if patient has an element of underlying asthma that was untreated prior to the hospitalization. Patient with significant AA gradient at this time. ABG shows adequate ventilation, but oxygenation is marginal despite 10 L nasal cannula. Patient may need to be transition to Airvo. Cannot exclude the need for BiPAP versus intubation with progression. Remdesivir has not shown significant effectiveness with delayed initiation, so this will be held. Patient will continue with Decadron therapy. Patient should be made stepdown status given progression of disease. Wean oxygen as tolerated. Procalcitonin is not suggestive of a concomitant bacterial infection. 2. Obesity/steroid use Some concern for hyperglycemia secondary to Decadron therapy. Will schedule blood sugar checks for evaluation. Inpatient E&M: [id number] Init Hosp L3
[2020-09-15 15:50] LABS: Allen Test Positive; Base Excess 1 mmol/L (-2 to +2); Bicarbonate 25.4 mmol/L (22-26); Blood Gas Specimen Type ART; O2 Delivery Device Cannula; PO2 78 mmHG (75-100); SITE L Radial; SO2 96 % (95-99); Total Carbon Dioxide 27 mmol/L; pCO2 36.7 mmHg (35-45); pH 7.45 (7.35-7.45)
[2020-09-15 23:01] LABS: Bedside Glucose 123 mg/dL (70-110)
--- NOTE | 2020-09-15 23:51 | CT_ITS ---
STUDY: CTA CHEST REASON FOR EXAM: Female, 34 years old. covid 19 hypoxia RADIATION DOSAGE (If Supplied By Facility): CTDIvol = ( 13.50 ) mGy, DLP = ( 497.22 ) mGycm TECHNIQUE: The examination was performed with the intravenous administration of IV 100mL [id number]. Post-processing of the angiographic images was performed, with multiplanar reformation and 3D reconstruction. Individualized dose optimization techniques were used for this CT. COMPARISON: CTA chest from 09/08/2020 FINDINGS: Normal enhancement of the main pulmonary artery and right and left pulmonary arteries. Normal enhancement of the bilateral peripheral pulmonary arteries. There is no demonstrated pulmonary embolism. Normal thoracic aorta and visualized great vessels. There is no demonstrated aortic dissection. Normal heart and pericardium. Normal mediastinum. Normal hilar regions. Normal visualized trachea and bronchi. The lungs demonstrate diffuse scattered groundglass airspace opacities.. Normal pleura. Normal chest wall structures. Normal osseous structures. Normal visualized upper abdomen. CT/CTA Chest W/WO Contrast IMPRESSION: No demonstrated pulmonary embolism or arterial dissection. Interval increase in diffusely scattered groundglass airspace opacities concerning for underlying infectious inflammatory process and Covid pneumonia. Electronically Signed: Tomer Triplett MD at 1:21 EDT Tel , Service support ,
[2020-09-16] VITALS (32 sets, daily range): BP systolic 91–125; BP diastolic 37–79; PULSE 69–121; RESP 17–31; TEMP 36.6–36.9; O2SAT 90–99
[2020-09-16 04:35] LABS: Absolute Lymphocyte Count 0.88 X10^3/uL (0.83-4.51); Absolute Neutrophil Count 7.4 X10^3/uL (2.0-7.7); Basophil# 0.01 X10^3/uL; Basophil% 0.1 % (0-1); Eosinophil# 0.15 X10^3/uL; Eosinophils% 1.6 % (0-5); Hematocrit 43.5 % (37-47); Hemoglobin 13.3 g/dL (12.0-15.0); Lymphocyte # 0.88 X10^3/ul (4.0); Lymphocyte % 9.6 % (19-41); Mean Corp Hgb Conc 30.6 g/dL (32-36); Mean Corpuscular Hgb 26.2 pg (27.0-32.0); Mean Corpuscular Volume 85.8 fL (81-99); Mean Platelet Vol. 10.6 fl (6.2-12.0); Monocyte# 0.59 X10^3/uL; Monocyte% 6.4 % (0-10); NRBC Flagged by Analyzer 0 % (0-5); Neutrophil # 7.36 X10^3/uL (2.7-7.7); Neutrophil % 80.3 % (47-70); Platelet Count 162 K/mm3 (150-450); RBC Distribution Width CV 12.9 % (11.6-14.6); RBC Distribution Width SD 39.9 fl (35.1-43.9); Red Blood Count 5.07 M/mm3 (4.2-5.4); White Blood Count 9.2 K/mm3 (4.4-11.0)
[2020-09-16 04:51] LABS: ALB/GLOB Ratio 0.6 RATIO (0.9-2.4); AST(SGOT) 28 U/L (15-37); Alanine Aminotransfer ALT/SGPT 84 U/L (13-56); Albumin, Serum 2.6 g/dL (3.2-5.0); Alkaline Phosphatase 55 U/L (45-117); Anion Gap 5 (5-15); BUN 16 mg/dL (7-18); BUN/Creat Ratio 29.2 RATIO (10-20); Calcium,Total 8.4 mg/dL (8.5-10.1); Chloride 105 mmol/L (98-107); Creatinine, Serum 0.55 mg/dL (0.55-1.02); EST Glomerular Filtration Rate 134 mL/min (>60); Est Glom Filt Rate - Afr Amer 163 mL/min (>60); Estimated Creatinine Clearance 113.99 ml/min; Globulin 4.3 g/dL (2.2-4.2); Glucose 118 mg/dL (74-106); Magnesium 2.5 mg/dL (1.6-2.6); Potassium 3.8 mmol/L (3.5-5.1); Protein, Total 6.9 g/dL (6.4-8.2); Sodium Level 138 mmol/L (136-145)
--- NOTE | 2020-09-16 07:13 | PCM.PN.HOSP ---
Patient Problems: Active and Suspected Problems COVID-19 (Acute) Hypoxia (Acute) Respiratory failure with hypoxia (Acute) Reason for Visit: Follow-up on acute hypoxic respiratory failure/acute COVID-19 pneumonia Subjective: Patient was seen and examined. Overnight, she worsened, requiring increased use of oxygen. She is currently on Airvo. She denied any new complaints. Denied any fever or chills. She was encouraged to use incentive spirometer. Objective: Physical exam: General: Alert, Oriented x3, Cooperative, No apparent distress, Well developed, on Airvo HEENT: Atraumatic Oral: Moist Mucosa Neck: Supple Lungs: Clear to auscultation Cardiovascular: HS I+II, regular, no murmurs Abdomen: Bowel Sounds Present, Soft, Non Tender Extremities: No edema Skin: No rashes, No breakdown Neurological: Grossly intact Psych/Mental Status: Appropriate Vitals/I&O's: Vital Signs Temp Pulse Resp BP Pulse Ox 98.4 F 77 20 H 114/64 95 09/16/20 00:00 09/16/20 03:04 09/16/20 03:04 09/16/20 03:00 09/16/20 03:04 Oxygen Flow Rate (L/min) 50 Oxygen Delivery Method Airvo Weight: 90.265 kg Body Mass Index (BMI) 34.9 Intake and Output for Last 24 Hours 09/14/20 09/15/20 09/16/20 23:59 23:59 23:59 Intake Total 1560 / 1620 60 / 60 Output Total 650 / 900 250 / 250 Balance 910 / 720 -190 / -190 Laboratory Results 09/15/20 04:55: B-Natriuretic Peptide 12.5 09/15/20 15:45: Specimen Type ART, Sample Site L Radial, pH 7.45, Bicarbonate Actual 25.4, Total CO2 27, Base Excess 1, O2 Saturation 96, ABG pCO2 36.7, ABG pO2 78, Merrick Test Positive, O2 Delivery Device Cannula, Liter Flow 10.0 09/15/20 22:26: POC Glucose 123 H 09/16/20 04:25: WBC 9.2, RBC 5.07, Hgb 13.3, Hct 43.5, MCV 85.8, MCH 26.2 L, MCHC 30.6 L, RDW Std Deviation 39.9, RDW Coeff of Cathy 12.9, Plt Count 162, MPV 10.6, Immature Gran % (Auto) 2.000 H, Neut % (Auto) 80.3 H, Lymph % (Auto) 9.6 L, [place] % (Auto) 6.4, Eos % (Auto) 1.6, Baso % (Auto) 0.1, Absolute Neuts (auto) 7.4, Absolute Lymphs (auto) 0.88, Nucleated RBC % 0 09/16/20 04:25: Sodium 138, Potassium 3.8, Chloride 105, Carbon Dioxide 28.0, Anion Gap 5, BUN 16, Creatinine 0.55, Estim Creat Clear Calc 113.99, Est GFR (MDRD) Af Amer 163, Est GFR (MDRD) Non-Af 134, BUN/Creatinine Ratio 29.2 H, Glucose 118 H, Calcium 8.4 L, Phosphorus 3.0, Magnesium 2.5, Total Bilirubin 0.50, AST 28, ALT 84 H, Alkaline Phosphatase 55, Total Protein 6.9, Albumin 2.6 L, Globulin 4.3 H, Albumin/Globulin Ratio 0.6 L Current Medications Acetaminophen (Acetaminophen 325 Mg Tablet) 650 mg PO Q6H PRN PRN PRN Reason: Pain Score 1-10/Temp > 100.7 F Albuterol Sulfate (Albuterol Sulfate 8 Gm Inhaler (60 Puffs)) 2 puff INHALATION Q4H.RT HERNANDEZ Albuterol Sulfate (Albuterol Sulfate 8 Gm Inhaler (60 Puffs)) 2 puff INHALATION Q2H PRN PRN PRN Reason: Wheezing Dexamethasone (Dexamethasone 4 Mg Tablet) 6 mg PO DAILY@0800 [facility] Last Admin: 09/15/20 09:09 Dose: 6 mg Documented by: Enoxaparin Sodium (Enoxaparin 30 Mg/0.3 Ml Syringe) 30 mg SC BID [facility]CLUDES [facility] Last Admin: 09/15/20 22:27 Dose: 30 mg Documented by: Guaifenesin (Guaifenesin 10 Ml Udc (200mg/10ml)) 20 ml PO Q4H PRN PRN PRN Reason: COUGH Sodium Chloride () 250 mls @ 15 mls/hr IV .[id number] PRN PRN Reason: Saline Flush Sodium Chloride () 250 mls @ 15 mls/hr IV .[id number] PRN PRN Reason: Additional IVPB Infusion Insulin Human Lispro (Insulin Lispro 100 Unit/Ml Insuln.Pen) 0 unit SC [facility]; Protocol Last Admin: 09/15/20 22:28 Dose: Not Given Documented by: Melatonin (Melatonin 3 Mg Tablet) 3 mg PO QHS PRN PRN PRN Reason: INSOMNIA Miscellaneous Information (Inhaler, Assist Devices 1 Each Spacer) 0 each INHALATION UD PRN PRN Reason: INHALER USE Ondansetron HCl (Ondansetron 4 Mg/2 Ml Vial) 4 mg IV Q8H PRN PRN PRN Reason: NAUSEA/VOMITING Sodium Chloride (0.9% Saline Lock 10 Ml Syringe) 10 - 40 ml IV UD PRN PRN Reason: SALINE FLUSH Medical Necessity - Tobacco Use Smoking Status: Never smoker Assessment/Plan All Active Problems COVID-19 (Acute) Hypoxia (Acute) Respiratory failure with hypoxia (Acute) 1. Acute hypoxic respiratory failure secondary to acute COVID-19 pneumonia Patient respiratory status is worsened, currently on Airvo Continue with breathing treatments, po steroids, encourage use of incentive spirometer. Wean off oxygen for SPO2 more than 94% 2. Acute COVID-19 pneumonia, continue on Decadron Pulmonology following 3. Hypokalemia, resolved 4. DVT PPx- Lovenox SC BID Inpatient E&M: [id number] [facility] Hosp L3
--- NOTE | 2020-09-16 08:38 | PCM.PN.INT ---
Subjective: Patient with progressive worsening overnight. Patient was as high as 90% FiO2 on Airvo to maintain saturations with sleep. Patient continues to be reluctant to use incentive spirometer. Patient is not currently reporting any chest pain. General: Alert, Oriented x3, Cooperative, - - Moderate conversational dyspnea. Obese. HEENT: Atraumatic, PERRLA, EOMI, Normocephalic, - - No scleral icterus or injection noted Oral: Moist Mucosa, No Gingival or Mucosal Lesions/ Ulcerations, - - Crowded posterior pharynx Neck: Supple, No JVD, No Nodes, Trachea Midline Lungs: No rhonchi, No wheeze, No rales, Diminished Cardiovascular: Regular rate, Regular Rhythm, Normal S1, Normal S2, No murmurs, No rub noted, No Gallop Abdomen: Bowel Sounds Present, Soft, Non Tender, Non-Distended, Obese Extremities: No clubbing, No cyanosis, No edema, Capillary Refill Less than 3 Seconds Skin: No rashes, No breakdown Musculoskeletal: No Tenderness to Palpation of Joints or Extremities Lymphatic: No Cervical, Supraclavicular, or Inguinal Adenopathy Neurological: Cranial nerves II-XII grossly intact, Neuro grossly intact, Motor Exam 5/5 strength throughout Psych/Mental Status: Appropriate, Flat Affect Vital Signs Temp Pulse Resp BP Pulse Ox 36.8 C 87 25 H 110/73 93 09/16/20 04:00 09/16/20 08:00 09/16/20 08:00 09/16/20 08:00 09/16/20 08:00 Oxygen Flow Rate (L/min) 50 Oxygen Delivery Method Airvo Weight: 90.265 kg Body Mass Index (BMI) 34.9 Intake and Output for Last 24 Hours 09/14/20 09/15/20 09/16/20 23:59 23:59 23:59 Intake Total 1560 / 1620 60 / 60 Output Total 650 / 900 250 / 250 Balance 910 / 720 -190 / -190 Labs (Last 48 Hours) 09/14/20 09/14/20 09/14/20 23:47 23:47 23:47 WBC 9.0 RBC 5.48 H Hgb 14.7 Hct 46.4 MCV 84.7 MCH 26.8 L MCHC 31.7 L RDW Std Deviation 39.6 RDW Coeff of Cathy 12.7 Plt Count 170 MPV 10.7 Immature Gran % (Auto) 1.600 H Neut % (Auto) 80.8 H Lymph % (Auto) 10.3 L [place] % (Auto) 6.3 Eos % (Auto) 0.8 Baso % (Auto) 0.2 Absolute Neuts (auto) 7.3 Absolute Lymphs (auto) 0.92 Nucleated RBC % 0 Fibrinogen 421 D-Dimer Quant (PE/DVT) > 20.00 H* Specimen Type Sample Site pH Bicarbonate Actual Total CO2 Base Excess O2 Saturation ABG pCO2 ABG pO2 Merrick Test O2 Delivery Device Liter Flow Sodium 139 Potassium 3.2 L Chloride 104 Carbon Dioxide 30.0 Anion Gap 5 BUN 25 H Creatinine 0.86 Estim Creat Clear Calc 72.90 Est GFR (MDRD) Af Amer 97 Est GFR (MDRD) Non-Af 80 BUN/Creatinine Ratio 29.1 H Glucose 124 H Lactic Acid Calcium 8.6 Phosphorus Magnesium Total Bilirubin 0.60 AST 40 H ALT 87 H Alkaline Phosphatase 56 Lactate Dehydrogenase 335 H Total Creatine Kinase 36 Troponin I < 0.015 C-React Prot Ext Range 19.70 H B-Natriuretic Peptide Total Protein 7.2 Albumin 2.8 L Globulin 4.4 H Albumin/Globulin Ratio 0.6 L Procalcitonin Serum , Qual POC Glucose 09/14/20 09/14/20 09/14/20 23:47 23:47 23:47 WBC RBC Hgb Hct MCV MCH MCHC RDW Std Deviation RDW Coeff of Cathy Plt Count MPV Immature Gran % (Auto) Neut % (Auto) Lymph % (Auto) [place] % (Auto) Eos % (Auto) Baso % (Auto) Absolute Neuts (auto) Absolute Lymphs (auto) Nucleated RBC % Fibrinogen D-Dimer Quant (PE/DVT) Specimen Type Sample Site pH Bicarbonate Actual Total CO2 Base Excess O2 Saturation ABG pCO2 ABG pO2 Merrick Test O2 Delivery Device Liter Flow Sodium Potassium Chloride Carbon Dioxide Anion Gap BUN Creatinine Estim Creat Clear Calc Est GFR (MDRD) Af Amer Est GFR (MDRD) Non-Af BUN/Creatinine Ratio Glucose Lactic Acid 1.7 Calcium Phosphorus Magnesium Total Bilirubin AST ALT Alkaline Phosphatase Lactate Dehydrogenase Total Creatine Kinase Troponin I C-React Prot Ext Range B-Natriuretic Peptide Total Protein Albumin Globulin Albumin/Globulin Ratio Procalcitonin 0.06 Serum , Qual NEGATIVE POC Glucose 09/15/20 09/15/20 09/15/20 04:55 04:55 04:55 WBC 8.5 RBC 5.35 Hgb 14.2 Hct 46.0 MCV 86.0 MCH 26.5 L MCHC 30.9 L RDW Std Deviation 40.7 RDW Coeff of Cathy 13.1 Plt Count 192 MPV 10.5 Immature Gran % (Auto) 1.500 H Neut % (Auto) 79.9 H Lymph % (Auto) 11.3 L [place] % (Auto) 6.1 Eos % (Auto) 1.1 Baso % (Auto) 0.1 Absolute Neuts (auto) 6.8 Absolute Lymphs (auto) 0.96 Nucleated RBC % 0 Fibrinogen D-Dimer Quant (PE/DVT) Specimen Type Sample Site pH Bicarbonate Actual Total CO2 Base Excess O2 Saturation ABG pCO2 ABG pO2 Merrick Test O2 Delivery Device Liter Flow Sodium 140 Potassium 3.5 Chloride 106 Carbon Dioxide 30.0 Anion Gap 4 L BUN 19 H Creatinine 0.82 Estim Creat Clear Calc 76.46 Est GFR (MDRD) Af Amer 102 Est GFR (MDRD) Non-Af 84 BUN/Creatinine Ratio 23.0 H Glucose 108 H Lactic Acid Calcium 8.3 L Phosphorus Magnesium Total Bilirubin AST ALT Alkaline Phosphatase Lactate Dehydrogenase Total Creatine Kinase Troponin I C-React Prot Ext Range B-Natriuretic Peptide 12.5 Total Protein Albumin Globulin Albumin/Globulin Ratio Procalcitonin Serum , Qual POC Glucose 09/15/20 09/15/20 09/16/20 15:45 22:26 04:25 WBC 9.2 RBC 5.07 Hgb 13.3 Hct 43.5 MCV 85.8 MCH 26.2 L MCHC 30.6 L RDW Std Deviation 39.9 RDW Coeff of Cathy 12.9 Plt Count 162 MPV 10.6 Immature Gran % (Auto) 2.000 H Neut % (Auto) 80.3 H Lymph % (Auto) 9.6 L [place] % (Auto) 6.4 Eos % (Auto) 1.6 Baso % (Auto) 0.1 Absolute Neuts (auto) 7.4 Absolute Lymphs (auto) 0.88 Nucleated RBC % 0 Fibrinogen D-Dimer Quant (PE/DVT) Specimen Type ART Sample Site L Radial pH 7.45 Bicarbonate Actual 25.4 Total CO2 27 Base Excess 1 O2 Saturation 96 ABG pCO2 36.7 ABG pO2 78 Merrick Test Positive O2 Delivery Device Cannula Liter Flow 10.0 Sodium Potassium Chloride Carbon Dioxide Anion Gap BUN Creatinine Estim Creat Clear Calc Est GFR (MDRD) Af Amer Est GFR (MDRD) Non-Af BUN/Creatinine Ratio Glucose Lactic Acid Calcium Phosphorus Magnesium Total Bilirubin AST ALT Alkaline Phosphatase Lactate Dehydrogenase Total Creatine Kinase Troponin I C-React Prot Ext Range B-Natriuretic Peptide Total Protein Albumin Globulin Albumin/Globulin Ratio Procalcitonin Serum , Qual POC Glucose 123 H 09/16/20 04:25 WBC RBC Hgb Hct MCV MCH MCHC RDW Std Deviation RDW Coeff of Cathy Plt Count MPV Immature Gran % (Auto) Neut % (Auto) Lymph % (Auto) [place] % (Auto) Eos % (Auto) Baso % (Auto) Absolute Neuts (auto) Absolute Lymphs (auto) Nucleated RBC % Fibrinogen D-Dimer Quant (PE/DVT) Specimen Type Sample Site pH Bicarbonate Actual Total CO2 Base Excess O2 Saturation ABG pCO2 ABG pO2 Merrick Test O2 Delivery Device Liter Flow Sodium 138 Potassium 3.8 Chloride 105 Carbon Dioxide 28.0 Anion Gap 5 BUN 16 Creatinine 0.55 Estim Creat Clear Calc 113.99 Est GFR (MDRD) Af Amer 163 Est GFR (MDRD) Non-Af 134 BUN/Creatinine Ratio 29.2 H Glucose 118 H Lactic Acid Calcium 8.4 L Phosphorus 3.0 Magnesium 2.5 Total Bilirubin 0.50 AST 28 ALT 84 H Alkaline Phosphatase 55 Lactate Dehydrogenase Total Creatine Kinase Troponin I C-React Prot Ext Range B-Natriuretic Peptide Total Protein 6.9 Albumin 2.6 L Globulin 4.3 H Albumin/Globulin Ratio 0.6 L Procalcitonin Serum , Qual POC Glucose Medical Necessity - Tobacco Use Smoking Status: Never smoker Assessment/Plan All Active Problems COVID-19 (Acute) Hypoxia (Acute) Respiratory failure with hypoxia (Acute) RECOMMENDATIONS: 1. Continue Decadron 2. Schedule albuterol with decreased as needed dosing interval 3. Possible transition to AVAPS overnight 4. Out of bed as tolerated 5. No Remdesivir given delayed presentation 6. Wean oxygen as tolerated. Encourage incentive spirometer IMPRESSIONS: 1. Acute hypoxic respiratory failure secondary to COVID-19 pneumonia Unclear if patient has an element of underlying asthma that was untreated prior to the hospitalization. Patient with significant AA gradient at this time. ABG shows adequate ventilation, but oxygenation is marginal despite 10 L nasal cannula. Patient transitioned to Airvo and still has marginal oxygenation. Cannot exclude the need for BiPAP versus intubation with progression. Remdesivir has not shown significant effectiveness with delayed initiation, so this will be held. Patient will continue with Decadron therapy. Patient should be made stepdown status given progression of disease. Wean oxygen as tolerated. Procalcitonin is not suggestive of a concomitant bacterial infection. We will give a single dose of Lasix. 2. Obesity/steroid use Some concern for hyperglycemia secondary to Decadron therapy. Will schedule blood sugar checks for evaluation. Inpatient E&M: [id number] [facility] Hosp L3
[2020-09-16 08:56] LABS: Bedside Glucose 89 mg/dL (70-110)
[2020-09-16] MEDS: Enoxaparin 30 MG/0.3 ML Syringe SC ×2 (10:06→21:36)
[2020-09-16] MEDS: dexAMETHasone 4 MG Tablet 6 MG PO (10:06)
[2020-09-16] MEDS: Furosemide 20 MG/2 ML VIAL IV (10:06)
[2020-09-16] MEDS: 0.9% Saline Lock 10 ML Syringe IV (10:07)
--- NOTE | 2020-09-16 10:30 | CASEMGMT ---
CARA MONTERO called patient in room for initial transition planning/care coordination assessment. CARA MONTERO introduced self and role at [facility]. Patient is alert and oriented. Patient willing to participate in assessment and is able to answer all questions appropriately. Care providers, pharmacy, and demographics verified. Patient wishes to discharge home, denies need for home health at this time. Patient states she has no further needs or concerns at this time. CM to follow for discharge planning needs that may arise. PCP: Chely Specialists: none Preferred Pharmacy: [facility] Insurance: [employer] Prescription Benefit: none Living Will/HPOA: none LNOK: Living Arrangements: Patient lives with and 4 children in a 2 story home with bed and bath on first floor. Patient states no else is sick in home except her daughter had a cough. CARA MONTERO educated patient on importance of family to isolate at home and to follow-up with PCP to regarding covid exposure, patient voiced understanding. No electricity at home but could rent a generator. Patient states she has family that could deliver groceries and supplies. Patient states she has thermometer at home. Transportation: Driving service DME/HHC: Patient denies DME or previous HHC. Will monitor for need for home oxygen at discharge. Disposition Plan: Patient to discharge home with family support and follow-up plans in place. Yumiko MCGINNIS, RN, CM
[2020-09-16 12:30] LABS: Bedside Glucose 124 mg/dL (70-110)
[2020-09-16 16:51] LABS: Bedside Glucose 149 mg/dL (70-110)
[2020-09-16 21:46] LABS: Bedside Glucose 163 mg/dL (70-110)
[2020-09-17] VITALS (30 sets, daily range): BP systolic 99–130; BP diastolic 54–73; PULSE 59–117; RESP 16–27; TEMP 36.4–36.8; O2SAT 89–98
[2020-09-17 06:50] LABS: Bedside Glucose 95 mg/dL (70-110)
--- NOTE | 2020-09-17 07:07 | PN_ITS ---
Patient Problems: Active and Suspected Problems COVID-19 (Acute) Hypoxia (Acute) Respiratory failure with hypoxia (Acute) Reason for Visit: Follow-up on acute hypoxic respiratory failure/acute COVID-19 pneumonia Subjective: Patient was seen and examined. No acute events overnight. She is on a slightly reduced amount of oxygen on Airvo. She denied any fever or chills. Objective: Physical exam: General: Alert, Oriented x3, Cooperative, No apparent distress, Well developed, on Airvo HEENT: Atraumatic Oral: Moist Mucosa Neck: Supple Lungs: Diminished Cardiovascular: HS I+II, regular, no murmurs Abdomen: Bowel Sounds Present, Soft, Non Tender Extremities: No edema Skin: No rashes, No breakdown Neurological: Grossly intact Psych/Mental Status: Appropriate Vitals/I&O's: Vital Signs Temp Pulse Resp BP Pulse Ox 98.1 F 86 17 106/64 91 09/17/20 04:00 09/17/20 06:00 09/17/20 06:00 09/17/20 06:00 09/17/20 06:00 Oxygen Flow Rate (L/min) 50 Oxygen Delivery Method Airvo Weight: 89.947 kg Body Mass Index (BMI) 34.9 Intake and Output for Last 24 Hours 09/15/20 09/16/20 09/17/20 23:59 23:59 23:59 Intake Total 1560 / 1620 60 / 310 350 / 350 Output Total 650 / 900 1250 / 1450 300 / 300 Balance 910 / 720 -1190 / -1140 50 / 50 Laboratory Results 09/16/20 08:38: POC Glucose 89 09/16/20 12:25: POC Glucose 124 H 09/16/20 16:44: POC Glucose 149 H 09/16/20 21:31: POC Glucose 163 H 09/17/20 06:44: POC Glucose 95 Current Medications Acetaminophen (Acetaminophen 325 Mg Tablet) 650 mg PO Q6H PRN PRN PRN Reason: Pain Score 1-10/Temp > 100.7 F Albuterol Sulfate (Albuterol Sulfate 8 Gm Inhaler (60 Puffs)) 2 puff INHALATION Q4H.RT HERNANDEZ Albuterol Sulfate (Albuterol Sulfate 8 Gm Inhaler (60 Puffs)) 2 puff INHALATION Q2H PRN PRN PRN Reason: Wheezing Dexamethasone (Dexamethasone 4 Mg Tablet) 6 mg PO DAILY@0800 [facility] Last Admin: 09/16/20 10:06 Dose: 6 mg Documented by: Enoxaparin Sodium (Enoxaparin 30 Mg/0.3 Ml Syringe) 30 mg SC BID [facility] Last Admin: 09/16/20 21:36 Dose: 30 mg Documented by: Guaifenesin (Guaifenesin 10 Ml Udc (200mg/10ml)) 20 ml PO Q4H PRN PRN PRN Reason: COUGH Sodium Chloride () 250 mls @ 15 mls/hr IV .[id number] PRN PRN Reason: Saline Flush Sodium Chloride () 250 mls @ 15 mls/hr IV .[id number] PRN PRN Reason: Additional IVPB Infusion Melatonin (Melatonin 3 Mg Tablet) 3 mg PO QHS PRN PRN PRN Reason: INSOMNIA Miscellaneous Information (Inhaler, Assist Devices 1 Each Spacer) 0 each INHALATION UD PRN PRN Reason: INHALER USE Ondansetron HCl (Ondansetron 4 Mg/2 Ml Vial) 4 mg IV Q8H PRN PRN PRN Reason: NAUSEA/VOMITING Sodium Chloride (0.9% Saline Lock 10 Ml Syringe) 10 - 40 ml IV UD PRN PRN Reason: SALINE FLUSH Last Admin: 09/16/20 10:07 Dose: 10 ml Documented by: STROKE Vital Signs/Narrative: Vital Signs Temp Pulse Resp BP Pulse Ox 09/17/20 06:00 86 17 106/64 91 09/17/20 05:13 73 22 H 92 09/17/20 05:00 76 23 H 113/65 94 09/17/20 04:00 98.1 F 61 17 102/61 95 Medical Necessity - Tobacco Use Smoking Status: Never smoker Assessment/Plan All Active Problems COVID-19 (Acute) Hypoxia (Acute) Respiratory failure with hypoxia (Acute) 1. Acute hypoxic respiratory failure secondary to acute COVID-19 pneumonia, slightly improved Currently on 50L FiO2 45%, down from 51%, on Airvo Continue with breathing treatments, po steroids, encourage use of incentive spirometer. Wean off oxygen for SPO2 more than 94% 2. Acute COVID-19 pneumonia, continue on Decadron Pulmonology following 3. Hypokalemia, resolved 4. DVT PPx- Lovenox SC BID Inpatient E&M: [id number] [facility] L2
--- NOTE | 2020-09-17 07:26 | PCM.PN.PUL ---
Patient Problems: Active and Suspected Problems COVID-19 (Acute) Hypoxia (Acute) Respiratory failure with hypoxia (Acute) Subjective: Patient did well overnight. No acute issues were reported. Oxygenation is improved. Nursing is reporting that patient is more compliant with incentive spirometer and patient is actively moving around the room independently. Patient continues to report a cough with deep inhalation, but feels this is improving. - Physical Exam Vitals/I&O's: Vital Signs Temp Pulse Resp BP Pulse Ox 36.7 C 86 17 106/64 91 09/17/20 04:00 09/17/20 06:00 09/17/20 06:00 09/17/20 06:00 09/17/20 06:00 Oxygen Flow Rate (L/min) 50 Oxygen Delivery Method Airvo Weight: 89.947 kg Body Mass Index (BMI) 34.9 Intake and Output for Last 24 Hours 09/15/20 09/16/20 09/17/20 23:59 23:59 23:59 Intake Total 1560 / 1620 60 / 310 350 / 350 Output Total 650 / 900 1250 / 1450 300 / 300 Balance 910 / 720 -1190 / -1140 50 / 50 General: Alert, Oriented x3, Cooperative, No apparent distress, - - Obese. No conversational dyspnea. HEENT: Atraumatic, PERRLA, EOMI, Normocephalic, - - No scleral icterus or injection noted Oral: Moist Mucosa, No Gingival or Mucosal Lesions/ Ulcerations Neck: Supple, No JVD, No Nodes, Trachea Midline Lungs: No rhonchi, No wheeze, No rales, Diminished Cardiovascular: Regular rate, Regular Rhythm, Normal S1, Normal S2, No murmurs, No rub noted, No Gallop Abdomen: Bowel Sounds Present, Soft, Non Tender, Non-Distended, Obese Extremities: No clubbing, No cyanosis, Edema - Trace lower extremity Skin: No rashes, No breakdown Musculoskeletal: No Tenderness to Palpation of Joints or Extremities Lymphatic: No Cervical, Supraclavicular, or Inguinal Adenopathy Neurological: Cranial nerves II-XII grossly intact, Neuro grossly intact, Motor Exam 5/5 strength throughout Psych/Mental Status: Alert and oriented to time, place, person, mood and affect Laboratory Results 09/16/20 08:38: POC Glucose 89 09/16/20 12:25: POC Glucose 124 H 09/16/20 16:44: POC Glucose 149 H 09/16/20 21:31: POC Glucose 163 H 09/17/20 06:44: POC Glucose 95 Current Medications Acetaminophen (Acetaminophen 325 Mg Tablet) 650 mg PO Q6H PRN PRN PRN Reason: Pain Score 1-10/Temp > 100.7 F Albuterol Sulfate (Albuterol Sulfate 8 Gm Inhaler (60 Puffs)) 2 puff INHALATION Q4H.RT HERNANDEZ Albuterol Sulfate (Albuterol Sulfate 8 Gm Inhaler (60 Puffs)) 2 puff INHALATION Q2H PRN PRN PRN Reason: Wheezing Dexamethasone (Dexamethasone 4 Mg Tablet) 6 mg PO DAILY@0800 [facility] Last Admin: 09/16/20 10:06 Dose: 6 mg Documented by: Enoxaparin Sodium (Enoxaparin 30 Mg/0.3 Ml Syringe) 30 mg SC BID [facility] Last Admin: 09/16/20 21:36 Dose: 30 mg Documented by: Guaifenesin (Guaifenesin 10 Ml Udc (200mg/10ml)) 20 ml PO Q4H PRN PRN PRN Reason: COUGH Sodium Chloride () 250 mls @ 15 mls/hr IV .[id number] PRN PRN Reason: Saline Flush Sodium Chloride () 250 mls @ 15 mls/hr IV .[id number] PRN PRN Reason: Additional IVPB Infusion Melatonin (Melatonin 3 Mg Tablet) 3 mg PO QHS PRN PRN PRN Reason: INSOMNIA Miscellaneous Information (Inhaler, Assist Devices 1 Each Spacer) 0 each INHALATION UD PRN PRN Reason: INHALER USE Ondansetron HCl (Ondansetron 4 Mg/2 Ml Vial) 4 mg IV Q8H PRN PRN PRN Reason: NAUSEA/VOMITING Sodium Chloride (0.9% Saline Lock 10 Ml Syringe) 10 - 40 ml IV UD PRN PRN Reason: SALINE FLUSH Last Admin: 09/16/20 10:07 Dose: 10 ml Documented by: Medical Necessity - Tobacco Use Smoking Status: Never smoker Assessment/Plan All Active Problems COVID-19 (Acute) Hypoxia (Acute) Respiratory failure with hypoxia (Acute) RECOMMENDATIONS: 1. Continue Decadron to complete a 10-day course 2. Schedule albuterol with decreased as needed dosing interval 3. Possible transition to nasal cannula later today 4. Out of bed as tolerated 5. No Remdesivir given delayed presentation 6. Wean oxygen as tolerated. Encourage incentive spirometer IMPRESSIONS: 1. Acute hypoxic respiratory failure secondary to COVID-19 pneumonia Unclear if patient has an element of underlying asthma that was untreated prior to the hospitalization. Patient with significant AA gradient at this time. ABG shows adequate ventilation, but oxygenation is marginal despite 10 L nasal cannula. Patient transitioned to Airvo and still has marginal oxygenation. Cannot exclude the need for BiPAP versus intubation with progression. Remdesivir has not shown significant effectiveness with delayed initiation, so this will be held. Patient will continue with Decadron therapy to complete 10 days. If patient continues to improve at current pace, potentially able to wean to low flow nasal cannula later today. 2. Obesity/steroid use Some concern for hyperglycemia secondary to Decadron therapy. However, patient's blood sugars have been stable for over 24 hours. Okay to discontinue glucose checks and insulin. Inpatient E&M: [id number] [facility] L3
[2020-09-17] MEDS: Enoxaparin 30 MG/0.3 ML Syringe SC ×2 (10:37→22:14)
[2020-09-17] MEDS: dexAMETHasone 4 MG Tablet 6 MG PO (10:38)
[2020-09-18] VITALS (22 sets, daily range): BP systolic 98–120; BP diastolic 50–73; PULSE 49–120; RESP 13–23; TEMP 36.4–36.7; O2SAT 76–98
[2020-09-18] MEDS: 0.9% Saline Lock 10 ML Syringe IV (04:29)
[2020-09-18 04:43] LABS: Absolute Lymphocyte Count 0.86 X10^3/uL (0.83-4.51); Basophil# 0.02 X10^3/uL; Basophil% 0.2 % (0-1); Eosinophil# 0.04 X10^3/uL; Eosinophils% 0.4 % (0-5); Hematocrit 44.3 % (37-47); Hemoglobin 13.7 g/dL (12.0-15.0); Lymphocyte # 0.86 X10^3/ul (0.83-4.51); Lymphocyte % 8.9 % (19-41); Mean Corp Hgb Conc 30.9 g/dL (32-36); Mean Corpuscular Hgb 26.9 pg (27.0-32.0); Mean Corpuscular Volume 86.9 fL (81-99); Monocyte% 6.2 % (0-10); NRBC Flagged by Analyzer 0 % (0-5); Neutrophil # 7.95 X10^3/uL (2.7-7.7); Neutrophil % 81.8 % (47-70); Platelet Count 195 K/mm3 (150-450); RBC Distribution Width CV 12.6 % (11.6-14.6); White Blood Count 9.7 K/mm3 (4.4-11.0)
[2020-09-18 05:03] LABS: ALB/GLOB Ratio 0.6 RATIO (0.9-2.4); AST(SGOT) 16 U/L (15-37); Alanine Aminotransfer ALT/SGPT 61 U/L (13-56); Albumin, Serum 2.6 g/dL (3.2-5.0); Alkaline Phosphatase 57 U/L (45-117); BUN 21 mg/dL (7-18); BUN/Creat Ratio 33.2 RATIO (10-20); Calcium,Total 8.7 mg/dL (8.5-10.1); Chloride 104 mmol/L (98-107); Creatinine, Serum 0.63 mg/dL (0.55-1.02); EST Glomerular Filtration Rate 114 mL/min (>60); Est Glom Filt Rate - Afr Amer 138 mL/min (>60); Estimated Creatinine Clearance 99.52 ml/min; Globulin 4.4 g/dL (2.2-4.2); Glucose 109 mg/dL (74-106); Potassium 4.2 mmol/L (3.5-5.1); Sodium Level 138 mmol/L (136-145)
[2020-09-18 05:04] LABS: Anion Gap 3 (5-15)
[2020-09-18] MEDS: Enoxaparin 30 MG/0.3 ML Syringe SC (08:06)
[2020-09-18] MEDS: dexAMETHasone 4 MG Tablet 6 MG PO (08:06)
--- NOTE | 2020-09-18 10:38 | PN_ITS ---
Patient Problems: Active and Suspected Problems COVID-19 (Acute) Hypoxia (Acute) Respiratory failure with hypoxia (Acute) Subjective: Patient did well overnight. Patient continues to report subjective improvement in overall condition. Patient did desaturate with ambulation on 4 L nasal cannula, but was not checked on 6 L. Patient overall feels that she is doing well. Patient states that she can arrange for a concentrator and generator at home. - Physical Exam Vitals/I&O's: Vital Signs Temp Pulse Resp BP Pulse Ox 36.4 C L 108 H 23 H 111/60 98 09/18/20 08:15 09/18/20 10:00 09/18/20 10:00 09/18/20 10:00 09/18/20 10:00 Oxygen Flow Rate (L/min) 4 Oxygen Delivery Method Nasal Cannula Weight: 89.131 kg Body Mass Index (BMI) 34.9 Intake and Output for Last 24 Hours 09/16/20 09/17/20 09/18/20 23:59 23:59 23:59 Intake Total 60 / 310 1010 / 1010 Output Total 1250 / 1450 650 / 650 Balance -1190 / -1140 360 / 360 General: Alert, Oriented x3, Cooperative, No apparent distress, Well developed, Well nourished, - - Obese. Speaking in full sentences. HEENT: Atraumatic, PERRLA, EOMI, Normocephalic, - - No scleral icterus or injection noted Oral: Moist Mucosa, No Gingival or Mucosal Lesions/ Ulcerations, - - Carotid posterior pharynx Neck: Supple, No JVD, No Nodes, Trachea Midline Lungs: No rhonchi, No wheeze, No rales, Diminished Cardiovascular: Regular rate, Regular Rhythm, Normal S1, Normal S2, No murmurs, No rub noted, No Gallop Abdomen: Bowel Sounds Present, Soft, Non Tender, Non-Distended, Obese Extremities: No clubbing, No cyanosis, No edema Skin: No rashes, No breakdown Musculoskeletal: No Tenderness to Palpation of Joints or Extremities Lymphatic: No Cervical, Supraclavicular, or Inguinal Adenopathy Neurological: Cranial nerves II-XII grossly intact, Neuro grossly intact, Motor Exam 5/5 strength throughout Psych/Mental Status: Alert and oriented to time, place, person, mood and affect Microbiology Past 72 Hours 09/15/20 00:25 Blood Culture (Wb) - Left Hand Blood Culture - Preliminary No growth in 48 hours. 09/14/20 23:47 Blood Culture (Wb) - Anticubital Right Blood Culture - Preliminary No growth in 48 hours. Laboratory Results 09/18/20 04:25: WBC 9.7, RBC 5.10, Hgb 13.7, Hct 44.3, MCV 86.9, MCH 26.9 L, MCHC 30.9 L, RDW Std Deviation 40.0, RDW Coeff of Cathy 12.6, Plt Count 195, MPV 11.0, Immature Gran % (Auto) 2.500 H, Neut % (Auto) 81.8 H, Lymph % (Auto) 8.9 L , [place] % (Auto) 6.2, Eos % (Auto) 0.4, Baso % (Auto) 0.2, Absolute Neuts (auto) 8.0 H, Absolute Lymphs (auto) 0.86, Nucleated RBC % 0 09/18/20 04:25: Sodium 138, Potassium 4.2, Chloride 104, Carbon Dioxide 31.0, Anion Gap 3 L, BUN 21 H, Creatinine 0.63, Estim Creat Clear Calc 99.52, Est GFR (MDRD) Af Amer 138, Est GFR (MDRD) Non-Af 114, BUN/Creatinine Ratio 33.2 H, Glucose 109 H, Calcium 8.7, Total Bilirubin 0.40, AST 16, ALT 61 H, Alkaline Phosphatase 57, Total Protein 7.0, Albumin 2.6 L, Globulin 4.4 H, Albumin/Globulin Ratio 0.6 L Current Medications Acetaminophen (Acetaminophen 325 Mg Tablet) 650 mg PO Q6H PRN PRN PRN Reason: Pain Score 1-10/Temp > 100.7 F Albuterol Sulfate (Albuterol Sulfate 8 Gm Inhaler (60 Puffs)) 2 puff INHALATION Q4H.RT HERNANDEZ Albuterol Sulfate (Albuterol Sulfate 8 Gm Inhaler (60 Puffs)) 2 puff INHALATION Q2H PRN PRN PRN Reason: Wheezing Dexamethasone (Dexamethasone 4 Mg Tablet) 6 mg PO DAILY@0800 HERNANDEZ Stop: 09/24/20 08:01 Last Admin: 09/18/20 08:06 Dose: 6 mg Documented by: Enoxaparin Sodium (Enoxaparin 30 Mg/0.3 Ml Syringe) 30 mg SC BID HERNANDEZ Last Admin: 09/18/20 08:06 Dose: 30 mg Documented by: Guaifenesin (Guaifenesin 10 Ml Udc (200mg/10ml)) 20 ml PO Q4H PRN PRN PRN Reason: COUGH Sodium Chloride () 250 mls @ 15 mls/hr IV .[id number] PRN PRN Reason: Saline Flush Sodium Chloride () 250 mls @ 15 mls/hr IV .[id number] PRN PRN Reason: Additional IVPB Infusion Melatonin (Melatonin 3 Mg Tablet) 3 mg PO QHS PRN PRN PRN Reason: INSOMNIA Miscellaneous Information (Inhaler, Assist Devices 1 Each Spacer) 0 each INHALATION UD PRN PRN Reason: INHALER USE Ondansetron HCl (Ondansetron 4 Mg/2 Ml Vial) 4 mg IV Q8H PRN PRN PRN Reason: NAUSEA/VOMITING Sodium Chloride (0.9% Saline Lock 10 Ml Syringe) 10 - 40 ml IV UD PRN PRN Reason: SALINE FLUSH Last Admin: 09/18/20 04:29 Dose: 10 ml Documented by: Medical Necessity - Tobacco Use Smoking Status: Never smoker Assessment/Plan All Active Problems COVID-19 (Acute) Hypoxia (Acute) Respiratory failure with hypoxia (Acute) RECOMMENDATIONS: 1. Continue Decadron to complete a 10-day course 2. Schedule albuterol with decreased as needed dosing interval 3. Check saturations with ambulation on 6 L 4. Patient able to tolerate ambulation on 6 L or less, potential discharge later today if home requirements are met 5. No Remdesivir given delayed presentation 6. Wean oxygen as tolerated. Encourage incentive spirometer IMPRESSIONS: 1. Acute hypoxic respiratory failure secondary to COVID-19 pneumonia Unclear if patient has an element of underlying asthma that was untreated prior to the hospitalization. Patient with significant AA gradient at this time. ABG shows adequate ventilation, but oxygenation is marginal despite 10 L nasal cannula. Patient transitioned to Airvo and still has marginal oxygenation. Cannot exclude the need for BiPAP versus intubation with progression. Remdesivir has not shown significant effectiveness with delayed initiation, so this will be held. Patient should complete a 10-day course of Decadron therapy. Patient with significant improvement in oxygenation. If able to tolerate ambulation on 6 L or less, potential discharge if patient can have a pulse oximeter, portable generator and concentrator provided at home. Patient would need to follow-up with nurse practitioner in our office in 4 weeks for PFT and to evaluate for cessation of supplemental oxygen. 2. Obesity/steroid use Some concern for hyperglycemia secondary to Decadron therapy. However, patient's blood sugars have been stable for over 24 hours. Okay to discontinue glucose checks and insulin. No need to check blood glucoses at home. Inpatient E&M: [id number] [facility] L2
--- NOTE | 2020-09-18 11:24 | CASEMGMT ---
Addendum entered by Alverto Self 09/18/20 14:07: Pt being discharged home. Pt qualifies for O2 @ 6 L/M @ rest and w/exertion. Script obtained from Dr Jasso and faxed to [facility] at this time. Call placed to Liz @ [facility] and she was made aware. [facility] will deliver O2 to pt's room today prior to discharge. Original Note: CARA MONTERO NOTE: Anticipate pt may be ready for discharge today and will need Home O2. Call placed to pt at this time. Reviewed list of local [employer] companies. Made aware [facility] is affiliated /[facility] and she states [email or web address] She was made aware cost for O2 for one month is approx $191 and pt states this is affordable, stating, We can work something out. Inquired about obtaining a generator. Pt states they already have a generator she can use. Pt states she has a phone and will be able to call [facility] once she arrives home to have concentrator and other portable O2 tanks delivered. Dr Jasso has recommended for pt to get a pulse ox to use @ home and pt is agreeable. She was made aware these can be purchased at any drug store and she states that her family can pick this up on her way home from the hospital. She denies other needs/concerns at this time. Home ambulatory pulse ox to be completed prior to discharge. CM to follow for O2 requirements. Pretty MCGINNIS RN, CM
--- NOTE | 2020-09-18 15:24 | PCM.DC ---
- Discharge Diagnoses Current Active Problems: Current Active and Chronic Problems COVID-19 (Acute) Hypoxia (Acute) Respiratory failure with hypoxia (Acute) Reason(s) for Visit for Discharge Instructions: Acute COVID-19 pneumonia You will use the following diet at home:: No restrictions, Regular Your food should be the consistency of: Regular Your liquids should be the consistency of: Regular/Thin Discharge Activity: Return to Normal Activity Additional Instructions: You are being discharged with oxygen. Continue to use your oxygen all the time. Continue to use your incentive spirometer. Continue to remain active and eat healthy. Let your doctor know if you develop fever >101.3F or have progressive worsening shortness of breath. Follow-up with your primary care doctor and also with pulmonology to have your continued oxygen use reevaluated. Be careful of going near open flames whilst on oxygen. Complete your Decadron as prescribed. Continue to use your inhaler as needed for shortness of breath. Continue to quarantine for 20 days total from the start of your symptoms. Allergies/Adverse Reactions: Allergies No Known Allergies Allergy (Verified 09/14/20 23:36) Medications to take at Discharge Albuterol Inhaler [Ventolin Hfa] 2 puff INHALATION Q4H PRN PRN #1 inhaler 09/08/20 Acetaminophen [Tylenol Tablet] 650 mg PO Q6H PRN PRN tablet 09/18/20 Aspirin 81 mg PO DAILY 30 Days #30 tab.chew 09/18/20 Dexamethasone [Decadron] 6 mg PO DAILY@0800 6 Days #6 tablet 09/18/20 The following prescriptions were given: Dexamethasone [Decadron] 6 mg PO DAILY@0800 6 Days #6 tablet Transmission Status: Sent to [id number] Primary Care Physician: Scar Mo DO [Primary Care Provider] - Please follow up with your Primary Care Physician in: after quarantine Test Results: Test results from this visit will be discussed in further detail at your follow-up appointment, if applicable. Please Follow Up With: Timothy Jasso MD When: after quarantine for re-evaluation of oxygen Proposed Discharge Date: 09/18/20
--- NOTE | 2020-09-18 15:28 | PCM.DC.SUM ---
Discharge Date and Diagnosis - Problem List Patient Problems: Active and Suspected Problems COVID-19 (Acute) Hypoxia (Acute) Respiratory failure with hypoxia (Acute) Date of Admission: 09/15/20 Date of Discharge: 09/18/20 - Primary Discharge Diagnosis Acute Problems: Active Problems Acute hypoxic respiratory failure Acute COVID-19 pneumonia Hypokalemia Hospital Course and Treatment Imaging Results: Clinical Impression(s) from Imaging Studies Chest CTA 09/15/20 23:51 IMPRESSION: No demonstrated pulmonary embolism or arterial dissection. Interval increase in diffusely scattered groundglass airspace opacities concerning for underlying infectious inflammatory process and Covid pneumonia. Electronically Signed: Tomer Triplett MD at 1:21 EDT Tel , Service support , Pulmonology Operations: None Procedures: Electroencephalogram Summary of Care Provided: The patient is a 34 year old F with no significant PMHx who comes in with a 5-6 days of SOB. Patient was seen earlier in the emergency department 6 days prior. She was discharged on Decadron but presented back with progressive SOB. Patient was found to be 85% on room air. D-dimer was also elevated more than 20, CT of the chest was negative for acute PE. Patient was admitted to the Covid floor and managed on Decadron, breathing treatment. She continued to worsen and was eventually unable. Pulmonology was consulted. Patient was strongly encouraged to use incentive spirometer. Her oxygen levels were weaned down. She was evaluated and qualified for discharge with home oxygen. She will follow up with pulmonology in the outpatient. She will complete 20 days of quarantine from the start of symptoms. Patient Problems: Active and Suspected Problems COVID-19 (Acute) Hypoxia (Acute) Respiratory failure with hypoxia (Acute) Subjective: On the day of discharge, patient was seen and examined. She felt improved. Denied any new complains. She is about 90% on 6 L of oxygen on ambulation. Objective: Physical exam: General: Alert, Oriented x3, Cooperative, No apparent distress, Well developed, on Airvo HEENT: Atraumatic Oral: Moist Mucosa Neck: Supple Lungs: Diminished Cardiovascular: HS I+II, regular, no murmurs Abdomen: Bowel Sounds Present, Soft, Non Tender Extremities: No edema Skin: No rashes, No breakdown Neurological: Grossly intact Psych/Mental Status: Appropriate - Physical Exam Vitals/I&O's: Vital Signs Temp Pulse Resp BP Pulse Ox 98.1 F 69 19 H 111/54 L 95 09/18/20 12:00 09/18/20 15:05 09/18/20 15:05 09/18/20 15:05 09/18/20 15:05 Oxygen Flow Rate (L/min) [ 6 AMBULATING with Oxygen #3] Oxygen Flow Rate (L/min) [ 4 AMBULATING with Oxygen #2] Oxygen Flow Rate (L/min) [ 2 AMBULATING with Oxygen #1] Oxygen Flow Rate (L/min) 6 Oxygen Delivery Method Nasal Cannula Weight: 89.131 kg Body Mass Index (BMI) 34.9 Intake and Output for Last 24 Hours 09/16/20 09/17/20 09/18/20 23:59 23:59 23:59 Intake Total 60 / 310 1010 / 1010 400 / 400 Output Total 1250 / 1450 650 / 650 400 / 400 Balance -1190 / -1140 360 / 360 0 / 0 Microbiology Past 72 Hours 09/15/20 00:25 Blood Culture (Wb) - Left Hand Blood Culture - Preliminary No growth in 48 hours. 09/14/20 23:47 Blood Culture (Wb) - Anticubital Right Blood Culture - Preliminary No growth in 48 hours. Laboratory Results 09/18/20 04:25: WBC 9.7, RBC 5.10, Hgb 13.7, Hct 44.3, MCV 86.9, MCH 26.9 L, MCHC 30.9 L, RDW Std Deviation 40.0, RDW Coeff of Cathy 12.6, Plt Count 195, MPV 11.0, Immature Gran % (Auto) 2.500 H, Neut % (Auto) 81.8 H, Lymph % (Auto) 8.9 L, Martin % (Auto) 6.2, Eos % (Auto) 0.4, Baso % (Auto) 0.2, Absolute Neuts (auto) 8.0 H, Absolute Lymphs (auto) 0.86, Nucleated RBC % 0 09/18/20 04:25: Sodium 138, Potassium 4.2, Chloride 104, Carbon Dioxide 31.0, Anion Gap 3 L, BUN 21 H, Creatinine 0.63, Estim Creat Clear Calc 99.52, Est GFR (MDRD) Af Amer 138, Est GFR (MDRD) Non-Af 114, BUN/Creatinine Ratio 33.2 H, Glucose 109 H, Calcium 8.7, Total Bilirubin 0.40, AST 16, ALT 61 H, Alkaline Phosphatase 57, Total Protein 7.0, Albumin 2.6 L, Globulin 4.4 H, Albumin/Globulin Ratio 0.6 L Current Medications Acetaminophen (Acetaminophen 325 Mg Tablet) 650 mg PO Q6H PRN PRN PRN Reason: Pain Score 1-10/Temp > 100.7 F Albuterol Sulfate (Albuterol Sulfate 8 Gm Inhaler (60 Puffs)) 2 puff INHALATION Q4H.RT HERNANDEZ Albuterol Sulfate (Albuterol Sulfate 8 Gm Inhaler (60 Puffs)) 2 puff INHALATION Q2H PRN PRN PRN Reason: Wheezing Dexamethasone (Dexamethasone 4 Mg Tablet) 6 mg PO DAILY@0800 [facility] Stop: 09/24/20 08:01 Last Admin: 09/18/20 08:06 Dose: 6 mg Documented by: Enoxaparin Sodium (Enoxaparin 30 Mg/0.3 Ml Syringe) 30 mg SC BID HERNANDEZ Last Admin: 09/18/20 08:06 Dose: 30 mg Documented by: Guaifenesin (Guaifenesin 10 Ml Udc (200mg/10ml)) 20 ml PO Q4H PRN PRN PRN Reason: COUGH Sodium Chloride () 250 mls @ 15 mls/hr IV .[id number] PRN PRN Reason: Saline Flush Sodium Chloride () 250 mls @ 15 mls/hr IV .[id number] PRN PRN Reason: Additional IVPB Infusion Melatonin (Melatonin 3 Mg Tablet) 3 mg PO QHS PRN PRN PRN Reason: INSOMNIA Miscellaneous Information (Inhaler, Assist Devices 1 Each Spacer) 0 each INHALATION UD PRN PRN Reason: INHALER USE Ondansetron HCl (Ondansetron 4 Mg/2 Ml Vial) 4 mg IV Q8H PRN PRN PRN Reason: NAUSEA/VOMITING Sodium Chloride (0.9% Saline Lock 10 Ml Syringe) 10 - 40 ml IV UD PRN PRN Reason: SALINE FLUSH Last Admin: 09/18/20 04:29 Dose: 10 ml Documented by: Discharge Diet: No Restrictions Discharge Activity: Return to Normal Activity Home Medications: Medications to take at Discharge Albuterol Inhaler [Ventolin Hfa] 2 puff INHALATION Q4H PRN PRN #1 inhaler 09/08/20 Acetaminophen [Tylenol Tablet] 650 mg PO Q6H PRN PRN tablet 09/18/20 Aspirin 81 mg PO DAILY 30 Days #30 tab.chew 09/18/20 Dexamethasone [Decadron] 6 mg PO DAILY@0800 6 Days #6 tablet 09/18/20 Following Prescriptions Were Given to Patient: Aspirin 81 mg PO DAILY 30 Days #30 tab.chew [facility]: [facility] Dexamethasone [Decadron] 6 mg PO DAILY@0800 6 Days #6 tablet Transmission Status: Received by [facility] Primary Care Physician: Scar Mo DO [Primary Care Provider] - Please follow up with your Primary Care Physician in: after quarantine Please Follow Up With: Timothy Jasso MD When: after quarantine for re-evaluation of oxygen Disposition: Home Minutes spent on discharge:: 45 Patient Condition:: Stable Medical Necessity - Tobacco Use Smoking Status: Never smoker Meaningful Use Info Meaningful Use Diagnoses (Choose all that apply): None applicable Inpatient E&M: 44747 Disch Hosp
--- NOTE | 2020-09-19 19:25 | CASEMGMT ---
CARA CM Discharge Follow-Up Phone Call. Lace: 7 Strata: 2 Discharge Date: 09/18/20 Adm Dx: COVID Attempted discharge f/u phone call. No answer. VM left for pt to return call if she has any questions/concerns/needs. Phone number provided. Pretty TURPINN RN CM
== END 2020-09-18 16:49 | disposition home or self-care (01) | DRG 177 ==
LOC: ED 09-15 01:27 → ICU 09-15 02:02
PROVIDERS: Internal Medicine Critical Care Medicine; Admitting Provider Family Medicine; Emergency Provider Emergency Medicine; PCP Family Medicine; Visit Provider Internal Medicine
DX: U07.1 COVID-19 (principal); J96.01 Acute respiratory failure with hypoxia; J12.82 Pneumonia due to coronavirus disease 2019; E87.6 Hypokalemia; E66.9 Obesity, unspecified; Z68.36 Body mass index [BMI] 36.0-36.9, adult; I44.7 Left bundle-branch block, unspecified; R79.89 Other specified abnormal findings of blood chemistry
CPT/HCPCS: 36600; 71275; 80048; 80053; 82550; 82803; 82962; 83605; 83615; 83735; 83880; 84100; 84145; 84484; 84703; 85025; 85379; 85384; 86140; 87040; 93005; 94660; 95819; 97166; 97535; 99251; 99285; Q9967; A4216; G0463; J1940

== ENCOUNTER → 2020-10-30 12:31 | Outpatient (CLI) | payer SELFPAY, OTHER ==
[2020-10-08 10:09] VITALS: BMI 34.9
[2020-10-30 13:36] VITALS: PULSE 122; PULSE 123; PULSE 124; PULSE 125; PULSE 126; PULSE 99; O2SAT 94; O2SAT 95; O2SAT 96
--- NOTE | 2020-10-30 14:53 | PFTCOMP_ITS ---
COMPLETE PULMONARY FUNCTION TEST INTERPRETATION Brief HPI: Patient is a 34 year old female, currently under the care of Monet Domingo, who presents to [facility] for complete pulmonary function tests secondary to diagnosis of post COVID-19. Respiratory therapist reports good effort, but significant difficulty despite multiple attempts. Interpretation: Forced expiration spirometry shows no large airways obstructive ventilatory defect with an FEV1 of 81% predicted. There is no significant bronchodilator response by strict ATS criteria. Spirograms are of poor quality, likely underestimating FVC. The respiratory flow volume loop shows a normal pattern. Lung volumes by body plethysmography show decreased total lung capacity at 3.67 L, 78% predicted. All other lung volumes are reduced symmetrically. Diffusion capacity by carbon monoxide is at the lower limit of normal at 70% p redicted. The airway resistance is normal. No previous pulmonary function tests were available for review. Impression: Mild restrictive ventilatory defect with symmetric reduction diffusing capacity.
--- NOTE | 2020-10-30 15:00 | PCM.PSN.6M ---
PSN 6 Minute Walk Test 6 Minute Walk Test 6 Minute Walk Test: 6 Minute Walk Test PSN:6-Minute Walk Test Start: 10/30/20 13:02 Freq: Status: Active Protocol: [id number] Document 10/30/20 13:36 EFREM (Rec: 10/30/20 13:39 EFREM [id number]) 6 Minute Walk Test Date Performed 10/30/20 Time Performed 13:15 Height 5 ft 2 in Weight: 86.183 kg Weight in Pounds 190.[address]: Monet Domingo [employer] Assistive device used: None Pre-test Oxygen Delivery Method Room Air Pulse Ox (%) 95 Pulse Rate (60-100 beats/min) 99 Dyspnea Luis Scale (0-10) 0 Exertion Luis Scale (6-20) 6 1st minute Oxygen Delivery Method Room Air Pulse Ox (%) 96 Pulse Rate (60-100 beats/min) 122 H 2nd minute Oxygen Delivery Method Room Air Pulse Ox (%) 94 Pulse Rate (60-100 beats/min) 123 H 3rd minute Oxygen Delivery Method Room Air Pulse Ox (%) 95 Pulse Rate (60-100 beats/min) 122 H 4th minute Oxygen Delivery Method Room Air Pulse Ox (%) 96 Pulse Rate (60-100 beats/min) 125 H 5th minute Oxygen Delivery Method Room Air Pulse Ox (%) 95 Pulse Rate (60-100 beats/min) 124 H 6th minute Oxygen Delivery Method Room Air Pulse Ox (%) 95 Pulse Rate (60-100 beats/min) 126 H Dyspnea Luis Scale (0-10) 2 Exertion Luis Scale (6-20) 12 Post-test Oxygen Delivery Method Room Air Pulse Ox (%) 96 Pulse Rate (60-100 beats/min) 99 Full Laps Walked 14 Partial Lap, Number of Tiles Walked 15 Total Distance Walked (ft) 841 Interpretation Interpretation: The patient was able to ambulate 841 feet over the course of 6 minutes on room air with no assistive devices or breaks. The patient experienced no significant desaturation, but did have a peak heart rate of 126 bpm. These findings are consistent with a cardiac limitation exercise tolerance. Recommendations Recommendations: No supplemental oxygen is indicated at this time. Patient may benefit from a cardiovascular evaluation.
== END ==
PROVIDERS: PCP Family Medicine; Referring Provider Nurse Practitioner Acute Care; Visit Provider Nurse Practitioner Acute Care
DX: U07.1 COVID-19 (principal)
CPT/HCPCS: 94060; 94618; 94726; 94729

== ENCOUNTER → 2022-10-12 | Outpatient (CLI) | payer OTHER, SELFPAY ==
[2022-10-20 14:10] LABS: HPV APTIMA, High Risk Negative (Negative)
== END | disposition home or self-care (01) ==
LOC: LABSPEC 10:53
PROVIDERS: PCP Family Medicine; Visit Provider Obstetrics & Gynecology
DX: Z12.4 Encounter for screening for malignant neoplasm of cervix (principal)
CPT/HCPCS: 87624; 88175; G0145